=== PATIENT | male | born 1960 | race Caucasian/White ===

== ENCOUNTER 2019-01-08 12:04 | Emergency (ER) | payer OTHER, SELFPAY ==
[2019-01-08] VITALS (21 sets, daily range): BP systolic 120–144; BP diastolic 70–81; PULSE 87–106; RESP 18; TEMP 36.1; O2SAT 92–98
--- NOTE | 2019-01-08 12:20 | ED.GENADUL_ITS ---
Discharge Plan Disposition Patient Disposition: HOME Condition: Improving Discharge Details Chief Complaint: Sorethroat Clinical Impression: Pharyngitis Primary Care Provider: Unknown,Unknown ED Provider: Abdullahi Eagle Home Meds and New Rx's Prescriptions: New clindamycin HCl 300 mg capsule 300 mg PO Q6H 10 Days Qty: 40 RF: 0 Discharge Instructions Instructions: Pharyngitis (ED) Additional Instructions: Home to rest today. Small, frequent sips of fluids and/or popsicles as needed to soothe your discomfort. May use the provided Magic mouthwash swish and spit every 6 hours for comfort. Stop the amoxicillin and begin the prescribed clindamycin. I recommend that you take an [id number] probiotic while on this medication. Your white blood cell count was low today at 1.54. Please follow-up with the [facility] for recheck and to recheck blood work. Call for an appointment in the next 5 to 7 days time. Return to the emergency department for any acute concerns. Medical Decision Making 58-year-old male presents from home with his . He was diagnosed with strep at the [facility] 4 days ago and started on amoxicillin. Now with persistent sore throat, feels his lips are cracked and dry. He has a history of rheumatoid arthritis and Sjogren's syndrome. He is slightly tachycardic with a pulse of 106. But afebrile with blood pressure 144/73. Differential diagnosis includes his known streptococcal pharyngitis, would exclude mono, must exclude tonsillar abscess. Patient had IV access established, given fluids, dexamethasone, clindamycin IV. Labs reveal a white blood cell count of 1.5, absolute neutrophil count of 0.86. Remainder of CBC with hematocrit 43, platelets 110. Sodium 133, potassium 3.6, chloride 96, BUN 15, creatinine 1.0. Slightly elevated LFTs with a total bili 1.4, AST 72, ALT 98. Granite screen negative. CT images without evidence of abscess or asymmetric swelling. Patient is improving. We will have him follow-up with the [facility] for recheck and recheck of white blood cell count. I will switch him from amoxicillin to clindamycin. He understands homecare as well as return precautions to the ER. Lab Data Lab results reviewed: Yes I reviewed the patient's lab results. Labs: Laboratory Results - last 24 hr 01/08/19 01/08/19 01/08/19 13:01 13:01 13:01 WBC 1.54 L* RBC 5.09 Hgb 15.5 Hct 43.5 MCV 85.5 MCH 30.5 MCHC 35.6 RDW 12.5 Plt Count 110 L MPV 9.4 Immature Gran % 0.0 Neutrophils % 56.0 Lymphocytes % 33.0 Monocytes % 2.0 Eosinophils % 7.0 Basophils % 2.0 Absolute Neutrophils 0.86 L Absolute Lymphocytes 0.51 L Absolute Monocytes 0.03 L Absolute Eosinophils 0.11 Absolute Basophils 0.03 Differential Comment Manual differential Sodium 133 L Potassium 3.6 Chloride 96 L Carbon Dioxide 30.5 Anion Gap 6.5 BUN 15 Creatinine 1.07 Estimated GFR/1.73 m2 >= 60.00 Glucose 112 H Calcium 8.3 L Total Bilirubin 1.4 H AST 72 H ALT 98 H Alkaline Phosphatase 58 Total Protein 7.4 Albumin 4.1 Monoscreen Negative HPI General Mode of arrival: ambulatory . Date/Time Provider Initiated Documentation: 01/08/19 12:13 . Limitations to Documentation: no limitations . Information obtained by: patient and family . History of Present Illness 58 year old M presents to the emergency department with the chief complaint of Sore throat for 4 days, recent strep diagnosis, described as moderate, Quality is described as dull and constant, and is localized to the face and mouth. Patient started experiencing this day(s) and it has been constant. No relieving factors improve symptom(s), No exacerbating factors reported . Patient notes fever/chills and other (No drooling or change to voice. Mild left anterior nosebleed this morning. Taking amoxicillin. Lips feel swollen and cracked.). Patient did receive the following treatments prior to arrival, other (Amoxicillin) Related Data Home Medications Medication Instructions Recorded Confirmed clindamycin HCl 300 mg PO Q6H 10 Days #40 cap 01/08/19 Previous Rx's Medication Instructions Recorded clindamycin HCl 300 mg PO Q6H 10 Days #40 cap 01/08/19 Allergies Allergy/AdvReac Type Severity Reaction Status Date / Time cefaclor [From [facility]] Allergy Anaphylaxsi Unverified 01/08/19 12:13 s General Stated Complaint: Sorethroat SORAYA: 3 Review of Systems Narrative: No drooling or change to voice. Lips feel cracked and swollen. No difficulty breathing. Taking all medications. 6 systems reviewed and otherwise negative [facility] Medical History Hypertension (Chronic) Rheumatoid arteritis (Acute) Rheumatoid arthritis (Chronic) Sjogrens syndrome (Acute) Social History Smoking/Tobacco Use Status: Former Tobacco Use Alcohol Intake: current Alcohol Intake frequency: a few times a week Drug use: Never Substance use type: does not use Exam Narrative Exam Narrative: GEN: awake, alert, oriented 3. Pleasant, well groomed, interactive. HEAD: Normocephalic, atraumatic ENT: Mucous membranes dry, oropharynx erythematous tonsillar pillars with scant white exudate, no asymmetry or significant swelling, External ear exam unremarkable EYES: PERRL, EOMI NECK: Full ROM, submandibular AL, no menigismus CHEST/RESP: Nontender, clear to auscultation bilateral, no wheeze/rhonchi/rales CARDIOVASCULAR: Regular and tachycardic, no murmur, rub keshav. 2+ Rad pulse bilateral ABDOMEN: Soft, nontender, no mass. +Bowel sounds EXT: Full ROM, no edema, no rash Neuro: Grossly normal neurologic exam, conversant, interactive. Psych: Speech fluent, thoughts congruent, affect normal Course Vital Signs Vital signs: Vital Signs Temperature 36.1 C L 01/08/19 12:07 Pulse 106 H 01/08/19 12:07 Respiratory Rate 18 01/08/19 12:07 Blood Pressure 144/73 H 01/08/19 12:07 Pulse Oximetry 98 01/08/19 12:07 Temperature 36.1 C L 01/08/19 12:07 Temperature Source Skin 01/08/19 12:07 Pulse 106 H 01/08/19 12:07 Respiratory Rate 18 01/08/19 12:07 Respiratory Effort 01/08/19 12:12 Blood Pressure 144/73 H 01/08/19 12:07 Blood Pressure Position Sitting 01/08/19 12:07 Pulse Oximetry 98 01/08/19 12:07 Oxygen Delivery Method Room Air 01/08/19 12:07 Oxygen Flow Rate 0 01/08/19 12:07 Pain Level 10 01/08/19 12:07 Comment 01/08/19 12:07
[2019-01-08] MEDS: Dexamethasone 10 MG/ML VIAL IVP (12:54)
[2019-01-08] MEDS: CLINDAMYCIN 900 MG/50 ML BAG 50 MG IVPB (12:56)
[2019-01-08] MEDS: Normal Saline 1,000 ML 1000 ML IV (12:56)
[2019-01-08 13:27] LABS: HCT 43.5 % (40.0-50.0); HGB 15.5 g/dL (13.5-17.5); Mean Corp. HGB Concentration 35.6 g/dL (32.0-36.0); Mean Corpuscular Hemoglobin 30.5 pg (27.0-33.0); Mean Corpuscular Volume 85.5 fL (80-95); Mean Platelet Volume 9.4 fL (8.0-11.0); Platelet Count 110 x1000/uL (130-400); RBC 5.09 m/cumm (4.50-6.00); RBC Distribution Width 12.5 % (11.8-14.1)
[2019-01-08 13:34] LABS: Mono Screening Negative (Negative)
[2019-01-08 13:49] LABS: White Blood Cell Count 1.54 k/cumm (4.4-10.8)
[2019-01-08 13:50] LABS: Absolute Basophil Count 0.03 k/cumm (0.0-0.2); Absolute Eosinophil Count 0.11 k/cumm (0.0-0.7); Absolute Lymphocyte Count 0.51 k/cumm (1.2-3.4); Absolute Monocyte Count 0.03 k/cumm (0.11-0.7); Absolute Neutrophil Count 0.86 k/cumm (1.2-6.7); Diff Comment Manual Differential
[2019-01-08 13:51] LABS: ALT 98 U/L (16-63); AST 72 U/L (15-37); Albumin 4.1 g/dL (3.4-5.0); Alkaline Phosphatase 58 U/L (46-116); Anion Gap 6.5 mmol/L (3-11); BUN 15 mg/dL (7-18); Bilirubin, Total 1.4 mg/dL (0.2-1.0); CO2 30.5 mmol/L (21.0-32.0); CREATININE 1.07 mg/dL (0.70-1.30); Calcium 8.3 mg/dL (8.5-10.1); Chloride 96 mmol/L (98-107); Glucose 112 mg/dL (70-100); Potassium 3.6 mmol/L (3.5-5.1); Sodium 133 mmol/L (136-145); Total Protein 7.4 g/dL (6.4-8.2)
[2019-01-08] MEDS: Omnipaque 350 MG/ML 100 ML BTL IJ (14:29)
--- NOTE | 2019-01-08 14:37 | DI.CT_ITS ---
EXAM: CT NECK W CLINICAL HISTORY: Sore throat, swelling TECHNIQUE: 100 mL of Omnipaque 350 COMPARISON: No exams were available for comparison FINDINGS: The orbits and retro-orbital soft tissues are unremarkable. The nasopharynx, oropharynx, hypopharynx and larynx are unremarkable. The retropharyngeal space is unremarkable. There is a 4 millimeter hypodense nodule in the right lobe of the thyroid gland. This may be evaluat ed with a nonemergent thyroid ultrasound if clinically indicated. No significant cervical adenopathy is appreciated. Incidentally noted are calcifications in the parotid glands bilaterally. The submandibular glands are unremarkable. The lung apices are clear. Small mucous retention cysts or polyps are seen in the maxillary sinuses. No fluid levels are seen i n the visualized paranasal sinuses. Mild degenerative changes are seen in the spine. IMPRESSION: No acute abnormality. No evidence of an abscess. The findings were discussed with the Emergency Department on the date of the examination.
[2019-01-08] MEDS: Ketorolac 30 MG/ML VIAL IVP (15:03)
[2019-01-08] MEDS: Magic Mouthwash 119 ML BTL 100 ML PO (15:28)
== END 2019-01-08 15:38 | disposition home or self-care (01) ==
PROVIDERS: Emergency Provider Emergency Medicine
DX: J02.0 Streptococcal pharyngitis (principal); Z87.891 Personal history of nicotine dependence
CPT/HCPCS: 36415; 70491; 80053; 87880; 96361; 96365; 96375; 99284; 85025; 86308; J1100; J1885; J3490

== ENCOUNTER 2019-01-12 15:30 | Emergency (ER) | payer OTHER, SELFPAY ==
[2019-01-12] VITALS (28 sets, daily range): BP systolic 109–156; BP diastolic 62–103; PULSE 100–121; RESP 16–29; TEMP 36.1–38.6; O2SAT 84–100
--- NOTE | 2019-01-12 16:11 | ED.GENADUL_ITS ---
Discharge Plan Discharge Details Chief Complaint: GenMedical Primary Care Provider: Unknown,Unknown ED Provider: Essence Vazquez [employer] Meds and New Rx's Prescriptions: No Action clindamycin HCl 300 mg capsule 300 mg PO Q6H 10 Days Qty: 40 RF: 0 cyclobenzaprine 10 mg Tablet 10 mg PO PRN PRNRF: 0 meloxicam 15 mg Tablet 15 mg PO BID RF: 0 chlorthalidone 25 mg Tablet 25 mg PO DAILY RF: 0 sildenafil 100 mg Tablet 100 mg PO PRN PRNRF: 0 methotrexate sodium 2.5 mg Tablet 15 mg PO QWEEK RF: 0 tamsulosin 0.4 mg Capsule 0.4 mg PO DAILY RF: 0 trazodone 100 mg Tablet 200 mg PO PRN PRNRF: 0 benazepril 20 mg Tablet 20 mg PO DAILY RF: 0 folic acid 1 mg Tablet 1 mg PO DAILY RF: 0 hydroxychloroquine 200 mg Tablet 200 mg PO DAILY RF: 0 epinephrine [EpiPen] 0.3 mg/0.3 mL Auto-Injector 0.3 mg IM PRN PRNRF: 0 fluticasone propionate 50 mcg/actuation [place],Suspension 2 spray INTRANASAL DAILY RF: 0 finasteride 5 mg Tablet 5 mg PO DAILY RF: 0 prazosin 2 mg Capsule 2 mg PO DAILY RF: 0 naproxen 500 mg Tablet 500 mg PO PRN PRNRF: 0 duloxetine 20 mg Capsule,Delayed Release(Dr/Ec) 20 mg PO DAILY RF: 0 diclofenac sodium 1 % Gel 1 % TOPICAL PRN PRNRF: 0 omeprazole 20 mg Tablet,Delayed Release (Dr/Ec) 20 mg PO DAILY RF: 0 Medical Decision Making Patient is a 58-year-old male presenting today with chief complaint of weakness, general malaise, decreased appetite, jaundice, bleeding from the nose and mouth. Please see HPI this history is quite complicated. History is most concerning for methotrexate toxicity. Patient does not take any methotrexate or any other medications since Friday morning. Patient appears acutely ill. He is jaundiced, has dried blood in his nares, petechial rash in the soft palate, plaque on his tongue, bleeding on the corners of his lips, jaundiced skin, conjunctival pallor, systolic murmur, frequent PVCs, diffuse abdominal tenderness with no peritoneal findings. Patient appears fatigued, diaphoretic. Lungs are clear. Patient is denying any chest pain. Contacted poison control who is attempting to return to a data security consultant to discuss the case with. In the interim, labs are pending and will aggressively hydrate the patient. Lactate 4.0 White cell count is 0.36, this is down from 1.54 on 01/08/2019 and down from 5.6 on the first of this month. Platelet count is 38, this is down from 110. Absolute neutrophil count is 30 commenced down from 0.86. Potassium 3.3. Creatinine is up to 60 from 1.07. Glucose is elevated which is atypical for the patient. Total bilirubin is up to 6.2, this is up from 1.4. AST is 12, this is down from 72. ALT is 59 down from 98. Patient last had his AST and ALT checked by primary care 12/25/2018, they are within normal limits. Spoke with jacob Cruz, just with poison control. She advised that this is a type of toxicity will often result in a delayed presentation and could potentially be fatal. She did advise beginning the patient on leucovorin and continuing with this until the blood cells are able to recover. Based on the patient's ideal body weight and body surface area, she recommended starting the patient 100 mg per metered square tonight with reduction in this to 100 every 6 hours. A methotrexate level has been sent to [facility] urgently. She did recommend treating until the level is below measurable level. She advised that we are likely to seem to be getting of this issue and then it may continue for the next 1 to 2 weeks. She advised slow administration of the leucovorin, monitoring the patient closely for hypocalcemia. Also advised that this is common to have reactions and to use antihistamines as needed for symptomatic management. She advised that this should drop should be delivered tonight but did not have to be immediately given as we do not have the appropriate dosing. Advise blood products if needed. Also advised monitoring postvoid residuals the patient does have a history of BPH. She is concerned that inserting a catheter at this time could cause further bleeding and advised that we may begin the alpha-dyllan if needed. Advised that patient does not begin making urine, or does not respond to the leucovorin, he needs to be begun on glucarpidafe. Feel the patient is too acutely ill to be kept here, we do not have ICU level care available and do not have enough of the appropriate medication. Thus far, patient received 1 L of normal saline, 1 L of lactated Ringer and is currently on a rate of LR. Contacted [facility] who will have hospitalist call back. Contacted [facility], Dr. Rebolledo, who feels that this patient should be at a critical access hospital and recommended speaking with [facility] or [facility]. Constuled with hemo/onc with [facility] Dr. Zavala who advised that they would consult with hospital medicine. Spoke with hospital medicine who advised he would accept the patient to the [facility] for continued treatment of his methotrexate toxicity. Obtain chest x-ray, blood cultures, begin patient on antibiotics. Team and actually recommended Zosyn the patient is anaphylaxis reaction to cefaclor. Will begin on levofloxacin. Patient is febrile with a temp of 1 1.5 ?F. Advised him at this time of the patient's underlying pathology to give either acetaminophen or NSAID. Will continue to encourage cold water intake, calling the patient externally. CXR: FINDINGS: Lungs: Incomplete inspiratory effort. A few abnormal reticular density at the lung bases. No focal consolidation Pleural space: Unremarkable. No pleural effusion. No pneumothorax. Heart/Mediastinum: Unremarkable. No cardiomegaly. Upper abdomen: Moderate amount of gas in the visualized upper abdomen a nonspecific pattern. Bones/joints: Unremarkable. IMPRESSION: Minimal atelectasis of the lung bases associated with incomplete inspiratory effort. Patient transported to [facility] via EMS. Receiving antibiotics. Cooling externally. 2L of fluids, receiving 3rd. All of his and his wifes questions were addressed, they are in agreement with this plan. HPI General Mode of arrival: wheelchair . Date/Time Provider Initiated Documentation: 01/12/19 15:40 . Limitations to Documentation: no limitations . Information obtained by: patient, family () and RN notes reviewed . HPI Narrative: Patient is a 58-year-old male with history of hypertension, rheumatoi d arthritis, Sjogren's syndrome, BPH, presenting today with concerns of general unwell. 2 weeks ago, the patient was started on methotrexate for his rheumatoid arthritis. Dosing for the patient was 3 tabs of 2.5 mg methotrexate once the morning, once at night, one day a week. However, the patient had been taking 3 tabs of 2.5 mg methotrexate twice daily for the past 2 weeks. This error was picked up by his on Friday after he took his morning dose. He has not taken any methotrexate, or his other medications, since that time. 1 week ago, the patient had a sore throat. He was seen by his primary care provider who began treatment for Streptococcus pharyngitis with a negative rapid strep. He was treated with amoxicillin. Patient subsequently came to the emergency department here on , 01/08/2019. At that time, there was concern for possible abscess and CT imaging and labs were completed. Patient was noted to have a low white count at that time as well as elevated LFTs. However, patient had denied being on any medications at that time aside from the amoxicillin. Had not relayed that he was on methotrexate and no dosing abnormalities were noted. After being discharged from here on , patient began to decline more rapidly. reports that Friday he was much more fatigued, has not been able to get out of bed easily. Patient reports that he is now not able to walk more than 10 steps without getting winded and very fatigued. He endorses mild abdominal pain states this began a few days ago. Is also been having bloody noses and has had bleeding at the corners of his mouth. Has had poor p.o. intake. Denies any hematochezia, melena, hematuria, hemoptysis. Has endorsed cough. noted a change in his skin tone and the patient appearing more jaundiced over the past 24 hours. The patient was not able to picket [employer] small things at home secondary to his weakness insisted he be brought to the emergency department. [facility] and [facility] did send down information on the patient. Related Data Home Medications Medication Instructions Recorded Confirmed clindamycin HCl 300 mg PO Q6H 10 Days #40 cap 01/08/19 01/12/19 benazepril 20 mg PO DAILY 01/12/19 01/12/19 chlorthalidone 25 mg PO DAILY 01/12/19 01/12/19 cyclobenzaprine 10 mg PO PRN PRN 01/12/19 01/12/19 diclofenac sodium 1 % TOPICAL PRN PRN 01/12/19 01/12/19 duloxetine 20 mg PO DAILY 01/12/19 01/12/19 epinephrine [EpiPen] 0.3 mg IM PRN PRN 01/12/19 01/12/19 finasteride 5 mg PO DAILY 01/12/19 01/12/19 fluticasone propionate 2 spray INTRANASAL DAILY 01/12/19 01/12/19 folic acid 1 mg PO DAILY 01/12/19 01/12/19 hydroxychloroquine 200 mg PO DAILY 01/12/19 01/12/19 meloxicam 15 mg PO BID 01/12/19 01/12/19 methotrexate sodium 15 mg PO QWEEK 01/12/19 01/12/19 naproxen 500 mg PO PRN PRN 01/12/19 01/12/19 omeprazole 20 mg PO DAILY 01/12/19 01/12/19 prazosin 2 mg PO DAILY 01/12/19 01/12/19 sildenafil 100 mg PO PRN PRN 01/12/19 01/12/19 tamsulosin 0.4 mg PO DAILY 01/12/19 01/12/19 trazodone 200 mg PO PRN PRN 01/12/19 01/12/19 Previous Rx's Medication Instructions Recorded clindamycin HCl 300 mg PO Q6H 10 Days #40 cap 01/08/19 Allergies Allergy/AdvReac Type Severity Reaction Status Date / Time cefaclor [From [facility]] Allergy Anaphylaxsi Unverified 01/12/19 15:38 s General Stated Complaint: GenMedical SORAYA: 3 Review of Systems Constitutional Constitutional: Reports as per HPI, Denies chills, Reports fatigue, Denies fever(s), Denies headache(s), Reports lethargy, Reports malaise and Reports poor appetite Eyes Eyes: Reports as per HPI, Denies eye discharge and Denies irritation ENT Ears, Nose, Mouth, and Throat: Reports as per HPI and Denies headache(s) Cardiovascular Cardiovascular: Reports as per HPI, Denies chest pain, Denies chest pain at rest, Denies pedal edema, Denies lightheadedness, Denies palpitations, Reports dyspnea, Reports dyspnea on exertion and Denies orthopnea Respiratory Respiratory: Reports as per HPI, Reports dyspnea and Reports dyspnea on exertion Gastrointestinal Gastrointestinal: Reports as per HPI, Reports abdominal pain (Endorses generalized discomfort), Denies cramping, Denies excessive flatus, Reports diarrhea (Reports several bowel movements today, denies any melena or hematochezia), Denies nausea, Denies vomiting and Denies hematemesis Genitourinary Genitourinary: Reports as per HPI (Reports diminished urination today), Denies hematuria, Denies difficulty urinating, Denies urinary incontinence and Denies urinary urgency Integumentary/Breasts Skin/Breast: Reports as per HPI, Reports bleeding lesions, Denies unusual bruising, Denies wounds and Reports other (jaundice) Neurologic Neurologic: Reports as per HPI and Denies headache(s) Endocrine Endocrine: Reports fatigue and Denies palpitations [facility] Social History Smoking/Tobacco Use Status: Former Tobacco Use Alcohol Intake: current Alcohol Intake frequency: a few times a week Drug use: Never Substance use type: does not use Do you feel safe at home: Yes Do you feel safe in your relationship?: Yes Exam Const General: cooperative, comfortable, no acute distress, well developed, disheveled, ill appearing (jaundice) acutely, lethargic and No well hydrated (appears dehydrated) Nutritional Appearance: well nourished and overweight Orientation: alert, awake and oriented x3 HENMT Head: normal to inspection, normocephalic and atraumatic Ears: hearing grossly normal bilaterally, external ears abnormal (crusting in left ear, typically wears hearing aid) and TM's normal bilaterally General nose exam: nares abnormal (dried blood discharge bilateral nares) and no nasal polyps Face and sinus: normal facial exam (jaundice), sinuses nontender and face symmetric Mouth: abnormal oral mucosae (soft palate petechia, petechia under tongue), lip abnormal (crusted blood in corners of mouth), abnormal tongue (thick white plaque), mucous membranes dry (appears dehydrated), malodorous breath fetid, no muffled voice and restricted motion (able to open with prompting but severe pain at corners of mouth) Teeth and gingiva: dentition normal Throat: uvula midline Eyes General: appearance normal, both eyes and all related structures Neck Neck: normal visual inspection, full ROM, no lymphadenopathy and no meningeal signs Resp Effort & Inspection: normal respiratory effort, able to speak in complete sentences and no respiratory distress Auscultation: clear to auscultation bilaterally, no rales, no rhonchi and no wheezes Cardio Rate: regular rate Rhythm: regular rhythm Heart Sounds: S1 normal, S2 normal and murmur systolic GI Inspection: normal to inspection, no edema, non-distended, scar (RLQ scar, appears well healed), no visible herniation and no visible pulsation Palpation: soft, no hepatosplenomegaly, not firm, no guarding, not rigid and tender (diffuse discomfort but no peritoneal findings) with no rebound tenderness Percussion: normal to percussion Auscultation: normal bowel sounds Skin General skin exam: no rashes or lesions noted Neuro General: alert and awake Cognition: normal cognition Speech: speech normal Gait: normal gait Extrem General: normal to inspection, no pedal edema and no calf tenderness Psych Appearance: grossly normal and well kempt Mental Status: mental status grossly normal Speech and Movement: speech and movement normal Course Vital Signs Vital signs: Vital Signs Temperature 36.1 C L 01/12/19 15:34 Pulse 112 H 01/12/19 15:34 Respiratory Rate 18 01/12/19 15:34 Blood Pressure 109/103 H 01/12/19 15:34 Pulse Oximetry 100 01/12/19 15:34 Temperature 36.1 C L 01/12/19 15:34 Temperature Source Temporal Artery Scan 01/12/19 15:34 Pulse 112 H 01/12/19 15:34 Respiratory Rate 18 01/12/19 15:34 Respiratory Effort Non-Labored 01/12/19 15:34 Blood Pressure 109/103 H 01/12/19 15:34 Blood Pressure Position Sitting 01/12/19 15:34 Pulse Oximetry 100 01/12/19 15:34 Oxygen Delivery Method Room Air 01/12/19 15:34 Oxygen Flow Rate 0 01/12/19 15:34
[2019-01-12] MEDS: Normal Saline 1,000 ML 1000 ML IV (16:23)
[2019-01-12] MEDS: Normal Saline Flush 10 ML SYR IVP (16:25)
[2019-01-12 16:37] LABS: Absolute Eosinophil Count 0.04 k/cumm (0.0-0.7); HCT 40.8 % (40.0-50.0); Mean Corp. HGB Concentration 36.8 g/dL (32.0-36.0); Mean Corpuscular Hemoglobin 30.2 pg (27.0-33.0); Mean Corpuscular Volume 82.3 fL (80-95); Mean Platelet Volume 10.5 fL (8.0-11.0); RBC 4.96 m/cumm (4.50-6.00); RBC Distribution Width 12.2 % (11.8-14.1)
[2019-01-12 16:45] LABS: INR 1.1 (0.9-1.1); PTT Activated 23.9 sec (21.0-31.4); Prothrombin Time 10.8 sec (9.3-11.0)
[2019-01-12 16:48] LABS: ALT 59 U/L (16-63); AST 12 U/L (15-37); Albumin 2.6 g/dL (3.4-5.0); Alkaline Phosphatase 59 U/L (46-116); Anion Gap 9.6 mmol/L (3-11); BUN 38 mg/dL (7-18); Bilirubin, Total 6.2 mg/dL (0.2-1.0); CO2 29.4 mmol/L (21.0-32.0); CREATININE 1.67 mg/dL (0.70-1.30); Calcium 8.3 mg/dL (8.5-10.1); Chloride 95 mmol/L (98-107); ETHANOL BLOOD < 3.0 mg/dL (<3); Estimated GFR 42.77 (mL/min/1.73m2); Glucose 203 mg/dL (74-106); Lipase 32 U/L (73-393); Magnesium 2.1 mg/dL (1.8-2.4); Potassium 3.3 mmol/L (3.5-5.1); Sodium 134 mmol/L (136-145); Total Protein 6.9 g/dL (6.4-8.2)
--- NOTE | 2019-01-12 17:00 | NUR.NOTE ---
Nursing Note: methrotrexate lab being transferred to another facility for results as we do not do this test here. run as stat read and will be awaiting results.
[2019-01-12 17:06] LABS: Troponin I < 0.05 ng/Ml (<0.06)
[2019-01-12] MEDS: Lactated Ringers 1,000 ML 1000 ML IV (17:26)
[2019-01-12 17:27] LABS: White Blood Cell Count 0.36 k/cumm (4.4-10.8)
[2019-01-12 17:28] LABS: Platelet Count 38 x1000/uL (130-400)
[2019-01-12 17:29] LABS: Absolute Neutrophil Count 0.03 k/cumm (1.2-6.7)
[2019-01-12 17:31] LABS: Absolute Lymphocyte Count 0.28 k/cumm (1.2-3.4); Absolute Monocyte Count 0.01 k/cumm (0.11-0.7); Atypical Lymphocytes % 0; Nucleated RBC 1 /100WBC
[2019-01-12 17:32] LABS: Anisocytosis 1+; Diff Comment Manual Differential; Tear Drop Cells 2+
[2019-01-12 18:59] LABS: Bilirubin Large (Negative); Blood Trace-intact (Negative); Clarity Clear (Clear); Glucose Negative (Negative); Ketones Negative (Negative); Leukocyte Esterase Negative (Negative); Nitrite Negative (Negative); Urobilinogen 0.2 EU/dL (Up TO 0.2)
[2019-01-12 19:10] LABS: Bacteria Moderate HPF (Negative); C & S Indicated? Yes; Casts Negative LPF (Negative); Crystals Negative HPF (Negative); Epithelial Cells Negative HPF (Negative); Mucus Trace (Negative); Other Cells Negative (Negative); RBC 0-2 HPF (0-2)
--- NOTE | 2019-01-12 19:42 | DI.RAD_ITS ---
EXAM: XR CHEST 2V PA LATERAL INDICATION: neutropenic fever. COMPARISON: No exams were available for comparison TECHNIQUE: 2D digital imaging was performed. FINDINGS: The lungs are expiratory on both views. There is minimal linear atelectasis at the lung bases. No s uperimposed infiltrate, effusion or pulmonary edema seen heart size appears normal. No pneumothorax or thoracic compression fractures are seen. IMPRESSION: No acute abnormality. Limited exam.
--- NOTE | 2019-01-12 20:18 | NUR.NOTE ---
Nursing Note: Pt's clothing removed, cool cloths applied and cool packs initiated per provider.
--- NOTE | 2019-01-12 20:20 | DI.VRAD_ITS ---
PROCEDURE INFORMATION: Exam: XR Chest, 2 Views Exam date and time: 01/12/2019 8:06 PM Age: 58 years old Clinical history: Fever and other: Neutropenic fever TECHNIQUE: Imaging protocol: XR of the chest Views: 2 views. COMPARISON: No relevant prior studies available. FINDINGS: Lungs: Incomplete inspiratory effort. A few abnormal reticular density at the lung bases. No focal consolidation Pleural space: Unremarkable. No pleural effusion. No pneumothorax. Heart/Mediastinum: Unremarkable. No cardiomegaly. Upper abdomen: Moderate amount of gas in the visualized upper abdomen a nonspecific pattern. Bones/joints: Unremarkable. IMPRESSION: Minimal atelectasis of the lung bases associated with incomplete inspiratory effort. Dictated and Authenticated by: Abdirizak Ventura MD. Ordering:DANGELO Lowry MD
--- NOTE | 2019-01-12 20:25 | NUR.NOTE ---
Nursing Note: Upon further skin evaluation, pt has petechiae on dependent portion of scrotum. Thighs are clear. Inguinal hernia appreciated as well. Provider aware.
[2019-01-12] MEDS: levoFLOXacin 500 MG/100 ML BAG 100 MG IVPB (20:29)
[2019-01-12] MEDS: Lactated Ringers 1,000 ML 250 ML IV (20:29)
[2019-01-13 08:25] LABS: Methotrexate <0.05 umol/L (See Note)
--- NOTE | 2019-01-14 09:47 | NUR.NOTE ---
Nursing Note: Faxed to the unit at [facility] that the patient is currently on, the urine culture result. Ariela Rogers.
== END 2019-01-12 21:00 ==
PROVIDERS: Emergency Provider Physician Assistant
DX: T45.1X1A Poisoning by antineoplastic and immunosuppressive drugs, accidental (unintentional), initial encounter (principal); R53.1 Weakness; R04.0 Epistaxis; R17 Unspecified jaundice; I10 Essential (primary) hypertension
CPT/HCPCS: 36415; 80053; 83690; 87040; 96361; 96365; 99285; 71046; 80320; 81003; 81015; 83520; 83605; 83735; 84484; 85025; 85045; 85610; 85730; 87086; 99284; J1956

== ENCOUNTER 2019-01-31 05:04 | Emergency (ER) | payer OTHER, SELFPAY ==
--- NOTE | 2019-01-31 05:07 | ED.GENADUL_ITS ---
Discharge Plan Disposition Patient Disposition: HOME Condition: Good Discharge Details Chief Complaint: Abd Prob Clinical Impression: Abdominal pain, epigastric, Transaminitis Primary Care Provider: Unknown,Unknown ED Provider: Kirk Kilpatrick Home Meds and New Rx's Prescriptions: New pantoprazole [Protonix] 40 mg tablet,delayed release (DR/EC) 40 mg PO DAILY Qty: 30 RF: 0 ranitidine HCl 300 mg capsule 300 mg PO BID Qty: 60 RF: 0 sucralfate [Carafate] 100 mg/mL suspension 10 ml PO QACHS Qty: 420 RF: 0 No Action cyclobenzaprine 10 mg Tablet 10 mg PO PRN PRNRF: 0 meloxicam 15 mg Tablet 15 mg PO BID RF: 0 chlorthalidone 25 mg Tablet 25 mg PO DAILY RF: 0 sildenafil 100 mg Tablet 100 mg PO PRN PRNRF: 0 methotrexate sodium 2.5 mg Tablet 15 mg PO QWEEK RF: 0 tamsulosin 0.4 mg Capsule 0.4 mg PO DAILY RF: 0 trazodone 100 mg Tablet 200 mg PO PRN PRNRF: 0 benazepril 20 mg Tablet 20 mg PO DAILY RF: 0 folic acid 1 mg Tablet 1 mg PO DAILY RF: 0 hydroxychloroquine 200 mg Tablet 200 mg PO DAILY RF: 0 epinephrine [EpiPen] 0.3 mg/0.3 mL Auto-Injector 0.3 mg IM PRN PRNRF: 0 fluticasone propionate 50 mcg/actuation [place],Suspension 2 spray INTRANASAL DAILY RF: 0 finasteride 5 mg Tablet 5 mg PO DAILY RF: 0 prazosin 2 mg Capsule 2 mg PO DAILY RF: 0 naproxen 500 mg Tablet 500 mg PO PRN PRNRF: 0 duloxetine 20 mg Capsule,Delayed Release(Dr/Ec) 20 mg PO DAILY RF: 0 diclofenac sodium 1 % Gel 1 % TOPICAL PRN PRNRF: 0 omeprazole 20 mg Tablet,Delayed Release (Dr/Ec) 20 mg PO DAILY RF: 0 Discharge Instructions Instructions: Epigastric Pain (ED) Additional Instructions: At this time your CT scan shows no evidence of significant abnormality per our radiologist. I suspect your symptoms are likely from a mild stomach ulcer. H owever because of your significant admission at [facility] there are many things that could cause problems that resulted in symptoms like years. Thus if you notice any worsening of your symptoms or lack of improvement over the next 24 to 48 hours please return immediately for reassessment. Please avoid any spicy foods or tomato-based products. Please take the medication that is been prescribed to prevent any future stomach ulcers. Your liver function is elevated compared to [facility]. This may be a result of your previous medical problem at [facility], or another etiology. Please follow-up promptly at the [facility] in the next 24 to 48 hours have repeat blood draws and reassessment. If you notice any worsening of your symptoms, or any new symptoms such as vomiting, diarrhea, fever, chills, shortness of breath, chest pain, numbness, weakness, or fainting , please return immediately to the emergency department for reevaluation. Please follow up with your primary care provider as soon as possible for reassessment and reevaluation. As always, it was a pleasure participating in your medical care today. Medical Decision Making This is a 58-year-old male with past medical history of rheumatoid arthritis, Sjogren's syndrome, who was recently discharged from [facility] after a prolonged stay for methotrexate overdose which had caused pancytopenia, neutropenic fever, small bowel obstruction during his stay secondary to gastritis/gastroenteritis. He presents today for for abdominal burning pain. Generalized abdominal distention generalized abdominal tenderness. Symptoms began last night. Last bowel movement was yesterday. He has had nausea but no vomiting. He denies any flatus. Physical exam demonstrates mildly distended abdomen, reduced bowel sounds. Signs and symptoms are currently concerning for small bowel obstruction. We will gently rehydrate, treat the patient's pain, get a CT scan to evaluate for obstruction and reassess. Additionally for summary of his stay in [facility] please refer to HPI. 6:[address] scan results are negative for acute process including ileus or obstruction. No abnormalities for his intestines: No hernias per virtual radiology. Patient states that he has had no improvement of his symptoms after morphine. Will trial GI cocktail. His CBC has returned and is notably unremarkable, normal whi te count, hemoglobin is 10.6 however in light of his anemia that he had, and his hemoglobin was 11 at discharge from [facility] a week ago. Platelets are durable. No significant left shift. 6:30 AM Patient's electrolytes have returned, renal function normal, corrected calcium in reference to albumin is normal. His potassium is slightly low at 3.3, sodium slightly low at 130, patient does demonstrate mild transaminitis, this is slightly worse compared to when he was at [facility]. We will correct his electrolytes, and add a GI cocktail and Bentyl for control pain. 7:30 AM The patient is feeling much better after GI cocktail. The burning is completely resolved and he feels well and would like to go home. I feel that his symptoms are likely secondary to a gastric ulcer. The absence of any pancreatitis, surgical abnormality on the CT scan, or other significant pathology I feel he can be safely discharged home. Because of his increase in transaminases I do feel that he requires close follow-up and prompt reassessment. Patient would like to follow-up at his [facility] in [place]. We have asked her case management to help facilitate this close and prompt follow-up. He does have an appointment this coming in 5 days, however we will have our case picker request labs prior to that he can be reassessed. I recommend specifically a conference of metabolic panel. At this time with the patient's notable symptom improvement, I feel that his symptoms are clinically consistent with gastric ulcers, and inconsistent with an acute surgical abdomen, or other acute life-threatening etiology. Discussed red flags which to return. I have extensively reviewed the treatment plan and discharge instructions with the patient. I have addressed all patient concerns at this time. The patient was made aware of what symptoms to monitor for that would warrant a return to the emergency department. Discussed the plan with the patient, they demonstrate verbal understanding and agreement with our assessment and plan at this time. FINDINGS: Lungs: Basilar atelectasis. Liver: Hepatic steatosis. Gallbladder and bile ducts: Normal. No calcified stones. No ductal dilation. Pancreas: Normal. No ductal dilation. Spleen: Normal. No splenomegaly. Adrenals: Normal. No mass. Kidneys and ureters: Normal. No hydronephrosis. Stomach and bowel: Colonic diverticula. Appendix: No evidence of appendicitis. Intraperitoneal space: Unremarkable. No free air. No significant fluid collection. Vasculature: Unremarkable. No abdominal aortic aneurysm. Lymph nodes: Unremarkable. No enlarged lymph nodes. Bladder: Unremarkable as visualized. Reproductive: Unremarkable as visualized. Bones/joints: Unremarkable. No acute fracture. Soft tissues: Unremarkable. IMPRESSION: No acute finding. Thank you for allowing us to participate in the care of your patient. Dictated and Authenticated by: Abdirizak Dickinson MD 01/31/2019 5:52 AM Eastern Time ([place] & [place]) HPI General Date/Time Provider Initiated Documentation: 01/31/19 05:06 . HPI Narrative: Patient is a 58-year-old male with history of hypertension, rheumatoid arthritis, Sjogren's syndrome, BPH, who was recently discharged from [facility] 1 week ago. He presents today for abdominal distention and pain in his abdomen. Pain is generalized throughout. He describes it as a burning sensation. He has had nausea with no vomiting. Symptoms began this evening. He denies any hematochezia, melena, acholic stool or hematemesis. Does admit to occasional loose stool. He has not eaten anything in the last 12 hours. He denies any current flatus. Past surgical history is positive for appendectomy. At his stay in [facility] he did develop a small bowel obstruction which resolved with a week of NG suction. He does have a known hiatal hernia and bilateral inguinal hernias. He denies any chest pain, shortness of breath or chest tightness. He denies any genital pain. Patient denies any other complaints at this time. No other modifying factors. For historical context: Over 2 weeks ago the patient was initially seen here in the ED for methotrexate overdose. He had been taking triple of his regular dose, he was subsequently admitted to [facility] with pancytopenia, neutropenia, fever, significant thrombocytopenia, jaundice bleeding. He was started on leucovorin therapy. He had both liver and kidney injury. While at [facility] he developed a small bowel obstruction and subsequent metabolic alkalosis second reno to suctioning of gastric contents. He was discharged 7 days ago with a notable improvement of his labs, tolerating p.o. well. Related Data Home Medications Medication Instructions Recorded Confirmed benazepril 20 mg PO DAILY 01/12/19 01/12/19 chlorthalidone 25 mg PO DAILY 01/12/19 01/12/19 cyclobenzaprine 10 mg PO PRN PRN 01/12/19 01/12/19 diclofenac sodium 1 % TOPICAL PRN PRN 01/12/19 01/12/19 duloxetine 20 mg PO DAILY 01/12/19 01/12/19 epinephrine [EpiPen] 0.3 mg IM PRN PRN 01/12/19 01/12/19 finasteride 5 mg PO DAILY 01/12/19 01/12/19 fluticasone propionate 2 spray INTRANASAL DAILY 01/12/19 01/12/19 folic acid 1 mg PO DAILY 01/12/19 01/12/19 hydroxychloroquine 200 mg PO DAILY 01/12/19 01/12/19 meloxicam 15 mg PO BID 01/12/19 01/12/19 methotrexate sodium 15 mg PO QWEEK 01/12/19 01/12/19 naproxen 500 mg PO PRN PRN 01/12/19 01/12/19 omeprazole 20 mg PO DAILY 01/12/19 01/12/19 prazosin 2 mg PO DAILY 01/12/19 01/12/19 sildenafil 100 mg PO PRN PRN 01/12/19 01/12/19 tamsulosin 0.4 mg PO DAILY 01/12/19 01/12/19 trazodone 200 mg PO PRN PRN 01/12/19 01/12/19 pantoprazole [Protonix] 40 mg PO DAILY #30 tab 01/31/19 ranitidine HCl 300 mg PO BID #60 cap 01/31/19 sucralfate [Carafate] 10 ml PO QACHS #420 ml 01/31/19 Previous Rx's Medication Instructions Recorded pantoprazole [Protonix] 40 mg PO DAILY #30 tab 01/31/19 ranitidine HCl 300 mg PO BID #60 cap 01/31/19 sucralfate [Carafate] 10 ml PO QACHS #420 ml 01/31/19 Allergies Allergy/AdvReac Type Severity Reaction Status Date / Time bee venom protein (honey bee) Allergy Unverified 01/31/19 05:14 cefaclor [From Ceclor] Allergy Anaphylaxsi Unverified 01/12/19 15:38 s General SORAYA: 3 Review of Systems All systems reviewed & are unremarkable except as noted in HPI and below PFSH Social History Smoking/Tobacco Use Status: Former Tobacco Use Alcohol Intake: current Alcohol Intake frequency: a few times a week Drug use: Never Substance use type: does not use Do you feel safe at home: Yes Do you feel safe in your relationship?: Yes Exam Narrative Exam Narrative: 1.Const: Well-nourished, Well-developed, appearing stated age 2.Eyes: PERRL, no conjunctival injection, and symmetrical lids. 3.ENT: Atraumatic external nose and ears. Moist MM. Neck: Symmetric, trachea midline, No thyromegaly. 4.CVS: +S1/S2, No murmurs or gallops. Peripheral pulses 2+ and equal in all extremities. Brisk capillary refill in all extremities. 5.RESP: Unlabored respiratory effort. Clear to auscultation bilaterally. No wheezes rales or rhonchi 6.GI: Moderately distended abdomen, generalized tenderness throughout tender to the touch. Notably reduced bowel sounds. No guarding. No rebound. No significant inguinal tenderness. 7.MSK: Normocephalic/Atraumatic, Extremities w/o deformity or ttp No cyanosis or clubbing, Normal movement of all extremities 8.Skin: Warm, Dry. Slightly.jaundice, bruising throughout. 9.Neuro: laboratory tech II-XII grossly intact. Sensation grossly intact, no focal neurologic deficits. 10.Psych: (AAO) x3. Appropriate mood and affect
[2019-01-31 05:10] VITALS: BP 141/62; PULSE 84; RESP 20; TEMP 37.1; O2SAT 99
--- NOTE | 2019-01-31 05:28 | DI.CT_ITS ---
EXAM: CT ABDOMEN AND PELVIS WO CLINICAL HISTORY: abdominal distension and pain TECHNIQUE: Images were performed from the aortic arch through the ischial tuberosities without IV or oral contrast. COMPARISON: No exams were available for comparison FINDINGS: There is minimal atelectasis at the lung bases. Aorta is normal in diameter. Coronary artery calcific ations are seen. The heart size is normal. The liver, spleen, pancreas, adrenals, kidneys and gallbla dder are unremarkable without IV contrast. There is no bowel dilatation or inflammatory change. Ther e is no evidence of appendicitis. There are diverticula from the mid descending through sigmoid colon but no evidence of diverticulitis. There is a normal quantity of stool. The bladder and prostate are unremarkable. There are small fatty-containing bilateral inguinal hernias. IMPRESSION: Diverticulosis. No evidence diverticulitis. No acute abnormality is seen.
[2019-01-31] MEDS: Normal Saline 1,000 ML 1000 ML IV (05:50)
[2019-01-31] MEDS: Ondansetron 4 MG/2 ML VIAL IVP (05:52)
--- NOTE | 2019-01-31 05:52 | DI.VRAD_ITS ---
PROCEDURE INFORMATION: Exam: CT Abdomen And Pelvis Without Contrast Exam date and time: 01/31/2019 5:25 AM Age: 58 years old Clinical history: Bloating; Abdominal pain; Generalized; Patient HX: Abdominal distension and pain TECHNIQUE: Imaging protocol: Computed tomography of the abdomen and pelvis without contrast. COMPARISON: No relevant prior studies available. FINDINGS: Lungs: Basilar atelectasis. Liver: Hepatic steatosis. Gallbladder and bile ducts: Normal. No calcified stones. No ductal dilation. Pancreas: Normal. No ductal dilation. Spleen: Normal. No splenomegaly. Adrenals: Normal. No mass. Kidneys and ureters: Normal. No hydronephrosis. Stomach and bowel: Colonic diverticula. Appendix: No evidence of appendicitis. Intraperitoneal space: Unremarkable. No free air. No significant fluid collection. Vasculature: Unremarkable. No abdominal aortic aneurysm. Lymph nodes: Unremarkable. No enlarged lymph nodes. Bladder: Unremarkable as visualized. Reproductive: Unremarkable as visualized. Bones/joints: Unremarkable. No acute fracture. Soft tissues: Unremarkable. IMPRESSION: No acute finding. Dictated and Authenticated by: Abdirizak Dickinson MD. Ordering:SYLWIA Bradley MD
[2019-01-31 06:01] LABS: Abs Immature Grans 0.03 k/cumm (0.0-0.09); Absolute Basophil Count 0.04 k/cumm (0.0-0.2); Absolute Lymphocyte Count 0.78 k/cumm (1.2-3.4); Absolute Monocyte Count 0.39 k/cumm (0.11-0.7); Absolute Neutrophil Count 6.63 k/cumm (1.2-6.7); Basophils % 0.5; HCT 31.4 % (40.0-50.0); HGB 10.6 g/dL (13.5-17.5); Immature Grans % 0.4; Lymphocytes % 9.9; Mean Corp. HGB Concentration 33.8 g/dL (32.0-36.0); Mean Corpuscular Hemoglobin 30.3 pg (27.0-33.0); Mean Corpuscular Volume 89.7 fL (80-95); Mean Platelet Volume 8.5 fL (8.0-11.0); Neutrophils % 84.2; Platelet Count 359 x1000/uL (130-400); RBC Distribution Width 15.6 % (11.8-14.1); White Blood Cell Count 7.87 k/cumm (4.4-10.8)
[2019-01-31 06:14] LABS: ALT 150 U/L (16-63); AST 169 U/L (15-37); Albumin 2.7 g/dL (3.4-5.0); Alkaline Phosphatase 201 U/L (46-116); Anion Gap 5.7 mmol/L (3-11); BUN 9 mg/dL (7-18); Bilirubin, Total 1.5 mg/dL (0.2-1.0); CO2 27.3 mmol/L (21.0-32.0); CREATININE 0.98 mg/dL (0.70-1.30); Calcium 8.1 mg/dL (8.5-10.1); Chloride 97 mmol/L (98-107); Glucose 189 mg/dL (74-106); Lipase 300 U/L (73-393); Potassium 3.3 mmol/L (3.5-5.1); Sodium 130 mmol/L (136-145); Total Protein 6.9 g/dL (6.4-8.2)
[2019-01-31] MEDS: Dicyclomine 20 MG TAB PO (06:16)
[2019-01-31] MEDS: Mylanta Suspension 30 ML CUP (06:18)
[2019-01-31] MEDS: Lidocaine 2% Viscous 15 ML CUP (06:18)
[2019-01-31] MEDS: POTASSIUM CHLORIDE 10 MEQ/100 ML BAG 100 MEQ IVPB (06:31)
[2019-01-31] MEDS: Potassium Chloride 20 MEQ TABCR 40 MEQ PO (06:48)
[2019-01-31] MEDS: Sucralfate 1 GM TAB 2 GM PO (07:29)
[2019-01-31 08:04] VITALS: BP 141/62; PULSE 84; RESP 20; TEMP 37.1; O2SAT 99
--- NOTE | 2019-02-01 17:17 | CMPROGNOTE_ITS ---
- If Service Date Differs Date of service: 02/01/19 Time of Service: 17:17 Care Management Progress Note CM faxed referral and lab request and discharge and visit summary from the ED to Mely Rothman RN CCC at the [facility] for follow up [facility] [place].
== END 2019-01-31 08:02 | disposition home or self-care (01) ==
PROVIDERS: Emergency Provider Student in an Organized Health Care Education/Training Program
DX: R10.13 Epigastric pain (principal); R74.0 Nonspecific elevation of levels of transaminase and lactic acid dehydrogenase [LDH]; E87.6 Hypokalemia; R14.0 Abdominal distension (gaseous)
CPT/HCPCS: 36415; 80053; 83690; 96361; 96365; 96375; 99285; 74176; 85025; J2405; J3480

== ENCOUNTER 2019-08-28 16:27 | Emergency (ER) | payer MEDICAID, SELFPAY ==
[2019-08-28 16:34] VITALS: BP 162/90; PULSE 82; RESP 16; TEMP 36.8; O2SAT 97
--- NOTE | 2019-08-28 17:24 | W.ED.GENAD ---
Discharge Plan Disposition Patient Disposition: HOME Condition: Good Discharge Details Chief Complaint: RashLesion Clinical Impression: Allergic reaction caused by a drug Primary Care Provider: Leanne Macias ED Provider: Essence Vazquez [place] Meds and New Rx's Prescriptions: New prednisone 50 mg tablet 50 mg PO DAILY Qty: 4 RF: 0 Continued cyclobenzaprine 10 mg Tablet 10 mg PO PRN PRNRF: 0 meloxicam 15 mg Tablet 15 mg PO BID RF: 0 chlorthalidone 25 mg Tablet 25 mg PO DAILY RF: 0 sildenafil 100 mg Tablet 100 mg PO PRN PRNRF: 0 methotrexate sodium 2.5 mg Tablet 15 mg PO QWEEK RF: 0 tamsulosin 0.4 mg Capsule 0.4 mg PO DAILY RF: 0 trazodone 100 mg Tablet 200 mg PO PRN PRNRF: 0 benazepril 20 mg Tablet 20 mg PO DAILY RF: 0 folic acid 1 mg Tablet 1 mg PO DAILY RF: 0 hydroxychloroquine 200 mg Tablet 200 mg PO DAILY RF: 0 epinephrine [EpiPen] 0.3 mg/0.3 mL Auto-Injector 0.3 mg IM PRN PRNRF: 0 fluticasone propionate 50 mcg/actuation [place],Suspension 2 spray INTRANASAL DAILY RF: 0 finasteride 5 mg Tablet 5 mg PO DAILY RF: 0 prazosin 2 mg Capsule 2 mg PO DAILY RF: 0 naproxen 500 mg Tablet 500 mg PO PRN PRNRF: 0 duloxetine 20 mg Capsule,Delayed Release(Dr/Ec) 20 mg PO DAILY RF: 0 diclofenac sodium 1 % Gel 1 % TOPICAL PRN PRNRF: 0 omeprazole 20 mg Tablet,Delayed Release (Dr/Ec) 20 mg PO DAILY RF: 0 pantoprazole [Protonix] 40 mg tablet,delayed release (DR/EC) 40 mg PO DAILY Qty: 30 RF: 0 ranitidine HCl 300 mg capsule 300 mg PO BID Qty: 60 RF: 0 sucralfate [Carafate] 100 mg/mL suspension 10 ml PO QACHS Qty: 420 RF: 0 Discharge Instructions Instructions: General Allergic Reaction (ED) Additional Instructions: Encourage water intake. Please take the prednisone as prescribed. You are given your dosing here today and do not need any further until tomorrow. You may apply cool compresses to the area of reaction help with swelling. If you develop shortness of breath, difficulty breathing, wheezing, GI upset, spreading of the rash or the new/worsening symptoms seek care urgently once again. Otherwise, I would like for you to follow-up with rheumatology or primary care next week for reevaluation. Referrals: Leanne Macias [Primary Care Provider] - Discharge Data Discharge Date/Time-TO BE ENTERED AT DEPARTURE: 08/28/19 18:20 Medical Decision Making Patient is a 59-year-old male presenting today with chief concern for rash. Reports that he administered himself Enbrel subcu yesterday into his left thigh. States that this is the second dosing. The first was administered by the PR at which time he learned how to do so. He reports that a few hours after administering the medication yesterday he began having itching over the area of injection that progressively increased. Then began noting erythema, warmth and swelling. He denies any shortness of breath, chest pain, difficulty breathing. No GI upset. Has not had issues like this historically. On exam, patient has well circumscribed area of erythema to the left thigh. This area is warm and swollen. Nontender. No fluctuance. Does appear excoriated. His history and exam is most concerning for allergic reaction. As this is progressively been worsening, I do feel that treatment with steroids would be appropriate. Patient had been scheduled for steroid injection last week for his back and this was delayed. He states that he has tolerated steroids well historically. No history of diabetes. This may also the secondary benefit of helping with his chronic back pain for which he typically receives injections. I did encourage close follow-up with primary care, particularly since the subcu injection would likely persist past the point of the steroids given orally. I have encouraged him to follow-up the beginning of next week. He will call on Friday to schedule follow-up appointment. Patient was given strict return precautions. We also discussed signs symptoms of infection that should prompt him to seek care urgently once again. All of his questions and concerns were addressed and he is agreement with this plan. Patient was given first dosing of steroids here. [facility], if coupon was also found to help offset the cost of medications. HPI General Mode of arrival: ambulatory. Date/Time Provider Initiated Documentation: 08/28/19 17:24. Limitations to Documentation: no limitations. Information obtained by: patient and RN notes reviewed. History of Present Illness 59 year old M presents to the emergency department with the chief complaint of itching, erythema, warmth left lateral thigh, described as mild, Quality is described as other (itchy), and is localized to the left and lower extremity. Patient reports no radiation. Patient started experiencing this day(s) (1) and it has been constant (progressively worsening). No relieving factors improve symptom(s), Medication worsens symptoms (began a few hours after injection of enbrel yesterday) . Patient notes rash; denies chest pain, cough, diaphoresis, fever/chills, loss of appetite, nausea/vomiting, shortness of breath, syncope and weakness. Patient did receive the following treatments prior to arrival, none Related Data Home Medications Medication Instructions Recorded Confirmed benazepril 20 mg PO DAILY 01/12/19 01/12/19 chlorthalidone 25 mg PO DAILY 01/12/19 01/12/19 cyclobenzaprine 10 mg PO PRN PRN 01/12/19 01/12/19 diclofenac sodium 1 % TOPICAL PRN PRN 01/12/19 01/12/19 duloxetine 20 mg PO DAILY 01/12/19 01/12/19 epinephrine [EpiPen] 0.3 mg IM PRN PRN 01/12/19 01/12/19 finasteride 5 mg PO DAILY 01/12/19 01/12/19 fluticasone propionate 2 spray INTRANASAL DAILY 01/12/19 01/12/19 folic acid 1 mg PO DAILY 01/12/19 01/12/19 hydroxychloroquine 200 mg PO DAILY 01/12/19 01/12/19 meloxicam 15 mg PO BID 01/12/19 01/12/19 methotrexate sodium 15 mg PO QWEEK 01/12/19 01/12/19 naproxen 500 mg PO PRN PRN 01/12/19 01/12/19 omeprazole 20 mg PO DAILY 01/12/19 01/12/19 prazosin 2 mg PO DAILY 01/12/19 01/12/19 sildenafil 100 mg PO PRN PRN 01/12/19 01/12/19 tamsulosin 0.4 mg PO DAILY 01/12/19 01/12/19 trazodone 200 mg PO PRN PRN 01/12/19 01/12/19 pantoprazole [Protonix] 40 mg PO DAILY #30 tab 01/31/19 ranitidine HCl 300 mg PO BID #60 cap 01/31/19 sucralfate [Carafate] 10 ml PO QACHS #420 ml 01/31/19 prednisone 50 mg PO DAILY #4 tab 08/28/19 Previous Rx's Medication Instructions Recorded pantoprazole [Protonix] 40 mg PO DAILY #30 tab 01/31/19 ranitidine HCl 300 mg PO BID #60 cap 01/31/19 sucralfate [Carafate] 10 ml PO QACHS #420 ml 01/31/19 prednisone 50 mg PO DAILY #4 tab 08/28/19 Allergies Allergy/AdvReac Type Severity Reaction Status Date / Time bee venom protein (honey bee) Allergy Unverified 08/28/19 16:39 cefaclor [From Ceclor] Allergy Anaphylaxsi Unverified 08/28/19 16:39 s General Stated Complaint: RashLesion SORAYA: 3 Review of Systems Constitutional Constitutional: Reports as per HPI, Denies chills and Denies fever(s) Cardiovascular Cardiovascular: Denies chest pain, Denies chest pain at rest, Denies chest pain with activity and Denies dyspnea Respiratory Respiratory: Denies chest congestion, Denies cough, Denies hemoptysis, Denies pain with cough, Denies dyspnea, Denies stridor and Denies wheezing Gastrointestinal Gastrointestinal: Denies abdominal pain and Denies change in stool character Musculoskeletal Musculoskeletal: Reports as per HPI Integumentary/Breasts Skin/Breast: Reports rash Neurologic Neurologic: Reports as per HPI, Denies sensory deficit and Denies paresthesias Allergic/Immunologic Allergic/Immunologic: Denies wheezing [facility] Social History Smoking/Tobacco Use Status: Former Tobacco Use Alcohol Intake: current Alcohol Intake frequency: a few times a week Drug use: Never Substance use type: does not use Do you feel safe at home: Yes Do you feel safe in your relationship?: Yes Exam Const General: cooperative, healthy appearing, comfortable, no acute distress and well developed Nutritional Appearance: average body habitus and well nourished Orientation: alert and awake Resp Effort & Inspection: normal respiratory effort, able to speak in complete sentences and no respiratory distress Auscultation: clear to auscultation bilaterally and no wheezes Cardio Rate: regular rate Rhythm: regular rhythm Heart Sounds: S1 normal and S2 normal Skin Rashes: rashes noted (as drawn below) Neuro General: patient alert and patient awake Cognition: normal cognition Speech: speech normal Gait: normal gait Sensory Exam: no sensory deficits noted Extrem Knee images: 1. area of erythema, warmth, swelling. No fluctuance. No pain with palpation Psych Appearance: grossly normal and well kempt Mental Status: mental status grossly normal Speech and Movement: speech and movement normal Course Vital Signs Vital signs: Vital Signs Temperature 36.8 C 08/28/19 16:34 Pulse 82 08/28/19 16:34 Respiratory Rate 16 08/28/19 16:34 Blood Pressure 162/90 H 08/28/19 16:34 Pulse Oximetry 97 08/28/19 16:34 Temperature 36.8 C 08/28/19 16:34 Temperature Source Tympanic 08/28/19 16:34 Pulse 82 08/28/19 16:34 Respiratory Rate 16 08/28/19 16:34 Blood Pressure 162/90 H 08/28/19 16:34 Blood Pressure Position Supine 08/28/19 16:34 Pulse Oximetry 97 08/28/19 16:34 Oxygen Delivery Method Room Air 08/28/19 16:34 Oxygen Flow Rate 0 08/28/19 16:34 Pain Level 0 08/28/19 16:34
[2019-08-28] MEDS: predniSONE 10 MG TAB 50 MG PO (18:13)
== END 2019-08-28 18:20 | disposition home or self-care (01) ==
PROVIDERS: Emergency Provider Physician Assistant; PCP Nurse Practitioner Adult Health
DX: R21 Rash and other nonspecific skin eruption (principal); R60.0 Localized edema; L29.9 Pruritus, unspecified; T50.995A Adverse effect of other drugs, medicaments and biological substances, initial encounter
CPT/HCPCS: 99283; J7512

== ENCOUNTER 2019-09-05 20:04 | Emergency (ER) | payer OTHER, MEDICAID, SELFPAY ==
--- NOTE | 2019-09-05 20:11 | ED.GENADUL_ITS ---
Discharge Plan Disposition Patient Disposition: HOME Condition: Good Discharge Details Chief Complaint: Orthopedic Clinical Impression: Knee pain, left Primary Care Provider: Leanne Macias ED Provider: Kirk Kilpatrick Home Meds and New Rx's Prescriptions: New lidocaine [Lidoderm] 1 PATCH patch 1 patch Topical Q24H Qty: 4 RF: 0 Continued cyclobenzaprine 10 mg Tablet 10 mg PO PRN PRNRF: 0 meloxicam 15 mg Tablet 15 mg PO BID RF: 0 chlorthalidone 25 mg Tablet 25 mg PO DAILY RF: 0 sildenafil 100 mg Tablet 100 mg PO PRN PRNRF: 0 tamsulosin 0.4 mg Capsule 0.4 mg PO DAILY RF: 0 trazodone 100 mg Tablet 200 mg PO PRN PRNRF: 0 benazepril 20 mg Tablet 20 mg PO DAILY RF: 0 folic acid 1 mg Tablet 1 mg PO DAILY RF: 0 epinephrine [EpiPen] 0.3 mg/0.3 mL Auto-Injector 0.3 mg IM PRN PRNRF: 0 fluticasone propionate 50 mcg/actuation [place],Suspension 2 spray INTRANASAL DAILY RF: 0 finasteride 5 mg Tablet 5 mg PO DAILY RF: 0 prazosin 2 mg Capsule 2 mg PO DAILY RF: 0 naproxen 500 mg Tablet 500 mg PO PRN PRNRF: 0 duloxetine 20 mg Capsule,Delayed Release(Dr/Ec) 20 mg PO DAILY RF: 0 diclofenac sodium 1 % Gel 1 % TOPICAL PRN PRNRF: 0 omeprazole 20 mg Tablet,Delayed Release (Dr/Ec) 20 mg PO DAILY RF: 0 famotidine 20 mg Tablet PO BID RF: 0 Discharge Instructions Instructions: Knee Pain (ED) Additional Instructions: At this time there is no evidence of fracture for your knee however as we discussed I suspect that you have notable arthritis in conjunction with mild meniscal injury and ligamentous injury. Please ice your knee 3-4 times per day. Avoid ibuprofen or naproxen, and instead take 500 to 1000 mg of Tylenol every 6 hours. Use your crutches to help give your knee a little rest over the next few weeks. We will place a referral with the marketing communications specialist here in [place]. If you notice any worsening of your symptoms, or any new symptoms such as vomiting, diarrhea, fever, chills, shortness of breath, chest pain, numbness, weakness, or fainting , please return immediately to the emergency department for reevaluation. Please follow up with your primary care provider as soon as possible for reassessment and reevaluation. As always, it was a pleasure participating in your medical care today. Referrals: Abdullahi Whiteside MD [ [facility] STAFF PHYSICIAN] - Deven Rodríguez MD [ [facility] STAFF PHYSICIAN] - Carlos Landeros MD [ [facility] STAFF PHYSICIAN] - Medical Decision Making This is a 58-year-old male with past medical history of rheumatoid arthritis, Sjogren's syndrome, gastric ulcer, chronic arthritis in his knees, who presents today for evaluation of left knee pain. The patient states that 3 to 4 weeks ago he was walking and twisted his left knee, he thought he heard a snap. Since then he has had pain in the knee whenever he ambulates. He has been using a hinged knee brace, this is slightly helped in conjunction with his cane. He had been taking meloxicam in the past but has not been recently secondary to what he feels was an allergic reaction. He has not been taking any NSAIDs secondary to history of a GI ulcer. Pain is worse with movement and ambulation, improved with rest and slightly improved with ice. He also noticed some mild swelling a round the left knee as well. The patient denies any numbness or tingling. He denies any fever or chills. He denies any redness, warmth, or other complaints. No other injuries. No other modifying factors. Patient's left knee demonstrates mild patella bursa inflammation and edema, no redness whatsoever. Mild tenderness around the patella itself. Patient is able to ambulate well. Knee is notably stable, distal neurovascular exam is all intact. No calf tenderness whatsoever. No symptoms or evidence of DVT. No significant pitting edema. Suspect that the patient has mild to moderate arthritis with mild meniscal injury as noted by the positive Sivakumar test in conjunction with his chronic arthritis. X-ray shows no evidence of acute fracture. Will give crutches Lidoderm patch recommend Tylenol and to avoid other NSAIDs. Recommend to continue ice on a regular daily basis, and will place referral for outpatient orthopedics for further evaluation. No evidence of DVT clinically, cellulitis, significant gout, or other concerning life-threatening etiology like septic arthritis. 9:20 PM X-ray reports have returned, no evidence of acute pathology or fracture. Suspect chronic arthritis with mild ligamentous component or meniscal component. Patient did very well with crutches. Recommend continued use with this, Tylenol, ice, and follow-up with orthopedics. Referral has been placed. Discussed red flags which to return. I have extensively reviewed the treatment plan and discharge instructions with the patient. I have addressed all patient concerns at this time. The patient was made aware of what symptoms to monitor for that would warrant a return to the emergency department. Discussed the plan with the patient, they demonstrate verbal understanding and agreement with our assessment and plan at this time. IMPRESSION: 1. No acute fracture or dislocation. 2. Mild tricompartmental degenerative changes as discussed. Thank you for allowing us to participate in the care of your patient. Dictated and Authenticated by: Juancarlos Woodall MD 09/05/2019 8:46 PM Eastern Time ([place] & [place]) HPI General Date/Time Provider Initiated Documentation: 09/05/19 20:10 . HPI Narrative: This is a 58-year-old male with past medical history of rheumatoid arthritis, Sj ogren's syndrome, gastric ulcer, chronic arthritis in his knees, who presents today for evaluation of left knee pain. The patient states that 3 to 4 weeks ago he was walking and twisted his left knee, he thought he heard a snap. Since then he has had pain in the knee whenever he ambulates. He has been using a hinged knee brace, this is slightly helped in conjunction with his cane. He had been taking meloxicam in the past but has not been recently secondary to what he feels was an allergic reaction. He has not been taking any NSAIDs secondary to history of a GI ulcer. Pain is worse with movement and ambulation, improved with rest and slightly improved with ice. He also noticed some mild swelling around the left knee as well. The patient denies any numbness or tingling. He denies any fever or chills. He denies any redness, warmth, or other complaints. No other injuries. No other modifying factors. Patient denies any chest pain, shortness of breath, chest tightness, cough, or hemoptysis. Denies PE risk factors such as recent long car rides, immobilization, recent surgery, prior history of DVT or PE, family history of PE or DVT, morbid obesity, exogenous estrogen and smoking, hemoptysis, history of cancer. Related Data Home Medications Medication Instructions Recorded Confirmed benazepril 20 mg PO DAILY 01/12/19 09/05/19 chlorthalidone 25 mg PO DAILY 01/12/19 09/05/19 cyclobenzaprine 10 mg PO PRN PRN 01/12/19 01/12/19 diclofenac sodium 1 % TOPICAL PRN PRN 01/12/19 01/12/19 duloxetine 20 mg PO DAILY 01/12/19 09/05/19 epinephrine [EpiPen] 0.3 mg IM PRN PRN 01/12/19 09/05/19 finasteride 5 mg PO DAILY 01/12/19 09/05/19 fluticasone propionate 2 spray INTRANASAL DAILY 01/12/19 09/05/19 folic acid 1 mg PO DAILY 01/12/19 01/12/19 meloxicam 15 mg PO BID 01/12/19 09/05/19 naproxen 500 mg PO PRN PRN 01/12/19 09/05/19 omeprazole 20 mg PO DAILY 01/12/19 01/12/19 prazosin 2 mg PO DAILY 01/12/19 09/05/19 sildenafil 100 mg PO PRN PRN 01/12/19 09/05/19 tamsulosin 0.4 mg PO DAILY 01/12/19 09/05/19 trazodone 200 mg PO PRN PRN 01/12/19 09/05/19 famotidine PO BID 09/05/19 lidocaine [Lidoderm] 1 patch TOPICAL Q24H #4 patch 09/05/19 Previous Rx's Medication Instructions Recorded lidocaine [Lidoderm] 1 patch TOPICAL Q24H #4 patch 09/05/19 Allergies Allergy/AdvReac Type Severity Reaction Status Date / Time bee venom protein (honey bee) Allergy Unverified 09/05/19 20:23 cefaclor [From Ceclor] Allergy Anaphylaxsi Unverified 09/05/19 20:23 s General SORAYA: 3 Review of Systems All systems reviewed & are unremarkable except as noted in HPI and below PFSH Medical History Hypertension (Chronic) Rheumatoid arteritis (Acute) Rheumatoid arthritis (Chronic) Sjogrens syndrome (Acute) Social History (Reviewed 09/05/19 @ 20:37 by JUDE Romero Smoking/Tobacco Use Status: Former Tobacco Use Alcohol Intake: current Alcohol Intake frequency: a few times a week Drug use: Never Substance use type: does not use Do you feel safe at home: Yes Do you feel safe in your relationship?: Yes Exam Narrative Exam Narrative: 1.Const: Well-nourished, Well-developed, appearing stated age 2.Eyes: PERRL, no conjunctival injection, and symmetrical lids. 3.ENT: Atraumatic external nose and ears. Moist MM. Neck: Symmetric, trachea midline, No thyromegaly. 4.CVS: +S1/S2, No murmurs or gallops. Peripheral pulses 2+ and equal in all extremities. Brisk capillary refill in all extremities. 5.RESP: Unlabored respiratory effort. Clear to auscultation bilaterally. No wheezes rales or rhonchi 6.GI: Soft, Nontender/Nondistended, No hepatosplenomegaly. No guarding or rebound. 7.MSK: Normocephalic/Atraumatic, Extremities w/o deformity. No cyanosis or clubbing, Normal movement of all extremities. Left knee: The knee is stable to varus, valgus, and anterior drawer stress. No deformity. Patellar grind test is positive for pain. Patient does have pain and tenderness though with valgus stressing. Sivakumar test is positive for pain. Patient is able to walk with mild pain with his cane. The patient does have m ild edema throughout his left knee, primarily around the patella bursa. No redness whatsoever.. No ttp to the fibular head. There is mild tenderness though to the peripatellar area, as well as just proximal to the tibial plateau. No redness whatsoever. 8.Skin: Warm, Dry. No rashes or lesions. 9.Neuro: calliope player II-XII grossly intact. Sensation grossly intact, no focal neurologic deficits. 10.Psych: (AAO) x3. Appropriate mood and affect
--- NOTE | 2019-09-05 20:15 | DI.RAD_ITS ---
EXAM: XR KNEE LT 4V AP,LAT,HAYDER,PAT CLINICAL HISTORY: 3 weeks pain after twisting knee, generalized. TECHNIQUE: 2D digital imaging was performed. COMPARISON: CR,XR XR CHEST 2V PA LATERAL from 01/12/2019 FINDINGS: BONES: No acute fracture is present. No bony destructive lesion is seen. Mild Tricompartment degener ative changes are seen. These include joint space narrowing and marginal osteophytes. JOINTS: The knee is normally aligned. Small suprapatellar joint effusion. SOFT TISSUE: Normal. IMPRESSION: No acute fracture or dislocation Degenerative changes in the knee. DATA REPOSITORY: RADIATION DOSE DELIVERED:
[2019-09-05 20:16] VITALS: BP 147/82; PULSE 93; RESP 18; TEMP 36.1; O2SAT 94
--- NOTE | 2019-09-05 20:46 | DI.VRAD_ITS ---
PROCEDURE INFORMATION: Exam: XR Left Knee Exam date and time: 09/05/2019 8:33 PM Age: 59 years old Clinical indication: Left; Patient HX: Knee pain for 3 weeks after twisting knee, generalized TECHNIQUE: Imaging protocol: XR Left knee. Views: 4 or more views. COMPARISON: No relevant prior studies available. FINDINGS: Bones/joints: No acute fracture or dislocation. There is mild tricompartmental marginal osteophyte formation with relative narrowing of the medial and patellofemoral compartments. There is small suprapatellar joint effusion. Soft tissues: No focal abnormality. IMPRESSION: 1. No acute fracture or dislocation. 2. Mild tricompartmental degenerative changes as discussed. Dictated and Authenticated by: Juancarlos Woodall MD. Ordering:SYLWIA Bradley MD
== END 2019-09-05 21:15 | disposition home or self-care (01) ==
PROVIDERS: Emergency Provider Student in an Organized Health Care Education/Training Program; PCP Nurse Practitioner Adult Health
DX: M25.562 Pain in left knee (principal); M06.9 Rheumatoid arthritis, unspecified; M13.162 Monoarthritis, not elsewhere classified, left knee; I10 Essential (primary) hypertension
CPT/HCPCS: 99283; 73564; E0114

== ENCOUNTER 2019-09-12 07:53 | Emergency (ER) | payer MEDICAID, SELFPAY ==
[2019-09-12 08:04] VITALS: BP 161/96; PULSE 94; RESP 18; TEMP 36.7; O2SAT 96
--- NOTE | 2019-09-12 08:21 | ED.GENADUL_ITS ---
Discharge Plan Disposition Patient Disposition: HOME Condition: Stable Discharge Details Chief Complaint: Cellulitis Clinical Impression: Left leg swelling, Arthritis of left knee, Injury of knee, left Primary Care Provider: Leanne Macias ED Provider: Patrick White Home Meds and New Rx's Prescriptions: Continued cyclobenzaprine 10 mg Tablet 10 mg PO PRN PRNRF: 0 chlorthalidone 25 mg Tablet 25 mg PO DAILY RF: 0 sildenafil 100 mg Tablet 100 mg PO PRN PRNRF: 0 tamsulosin 0.4 mg Capsule 0.4 mg PO DAILY RF: 0 trazodone 100 mg Tablet 200 mg PO PRN PRNRF: 0 benazepril 20 mg Tablet 20 mg PO DAILY RF: 0 folic acid 1 mg Tablet 1 mg PO DAILY RF: 0 epinephrine [EpiPen] 0.3 mg/0.3 mL Auto-Injector 0.3 mg IM PRN PRNRF: 0 fluticasone propionate 50 mcg/actuation [place],Suspension 2 spray INTRANASAL DAILY RF: 0 finasteride 5 mg Tablet 5 mg PO DAILY RF: 0 prazosin 2 mg Capsule 2 mg PO DAILY RF: 0 naproxen 500 mg Tablet 500 mg PO PRN PRNRF: 0 duloxetine 20 mg Capsule,Delayed Release(Dr/Ec) 20 mg PO DAILY RF: 0 diclofenac sodium 1 % Gel 1 % TOPICAL PRN PRNRF: 0 omeprazole 20 mg Tablet,Delayed Release (Dr/Ec) 20 mg PO DAILY RF: 0 famotidine 20 mg Tablet PO BID RF: 0 lidocaine [Lidoderm] 1 PATCH patch 1 patch Topical Q24H Qty: 4 RF: 0 Discharge Instructions Additional Instructions: Please follow-up with orthopedics and your primary care physician. Use knee brace, crutches and rest your knee with elevation over the next few weeks. Continue to take naproxen as prescribed. Return to the ER immediately for any worsening or new concerning symptoms. Referrals: Leanne Macias [Primary Care Provider] - Carlos Landeros MD [ [facility] STAFF PHYSICIAN] - Discharge Data Discharge Date/Time-TO BE ENTERED AT DEPARTURE: 09/12/19 09:28 Medical Decision Making Gait 26??59-year-old male with history of arthritis, question gouty arthritis, here with left knee pain, limited flexion and joint effusion without overlying inflammatory changes, as well as more distal left lower extremity edema. Patient did have recent hernia surgery and has been wearing knee brace with limited movement of his knee. Consider DVT. I did call to see if the technologist infectious disease was available to perform ultrasound. Consider gouty arthritis versus septic arthritis neuritis versus other. Plan to perform arthrocentesis of the left knee. --Attempted arthrocentesis and was unable to identify effusion for aspiration. We will give a dose of colchicine to see if this helps with pain. Patient is currently taking naproxen and using lidocaine patch over nape. We will perform ultrasound of the left lower extremity to assess for DVT. Ultrasound to be scheduled later today as radiation therapy technologist not immediately available. Patient would prefer to go home and come back for the study. I will hold on anticoagulant until test complete --163??patient return for ultrasound, ultrasound performed and negative for DVT per agricultural research technician. Plan for outpatient follow-up with orthopedics. Patient was encouraged to continue to use his knee brace and rest his leg with elevation. HPI General Mode of arrival: ambulatory . Date/Time Provider Initiated Documentation: 09/12/19 08:19 . Limitations to Documentation: no limitations . Information obtained by: patient . HPI Narrative: 59-year-old male with history of Sjogren's syndrome, arthritis, questionable gout, here with chief complaint of left leg swelling. Patient notes swelling started last night. Swelling was worse last night. He rested his leg and elevated it and swelling improved this morning but is still persisting. Swelling is localized to his left knee and left lower extremity to the ankle. Swelling is now moderate. He has associated pain in his left knee and also his left great toe. He notes that he has been told he may have gout but has not had joint aspiration performed. No associated fever. Patient was seen here in the emergency department on 09/05/2019 for left knee pain after injury a couple weeks prior, had x-rays, and was provided a knee brace and advised to follow-up with orthopedics with concern for meniscal versus ligamentous injury. He notes that he is attempting to schedule orthopedic follow-up. Related Data Home Medications Medication Instructions Recorded Confirmed benazepril 20 mg PO DAILY 01/12/19 09/12/19 chlorthalidone 25 mg PO DAILY 01/12/19 09/12/19 cyclobenzaprine 10 mg PO PRN PRN 01/12/19 09/12/19 diclofenac sodium 1 % TOPICAL PRN PRN 01/12/19 09/12/19 duloxetine 20 mg PO DAILY 01/12/19 09/12/19 epinephrine [EpiPen] 0.3 mg IM PRN PRN 01/12/19 09/12/19 finasteride 5 mg PO DAILY 01/12/19 09/12/19 fluticasone propionate 2 spray INTRANASAL DAILY 01/12/19 09/12/19 folic acid 1 mg PO DAILY 01/12/19 09/12/19 naproxen 500 mg PO PRN PRN 01/12/19 09/12/19 omeprazole 20 mg PO DAILY 01/12/19 09/12/19 prazosin 2 mg PO DAILY 01/12/19 09/12/19 sildenafil 100 mg PO PRN PRN 01/12/19 09/12/19 tamsulosin 0.4 mg PO DAILY 01/12/19 09/12/19 trazodone 200 mg PO PRN PRN 01/12/19 09/12/19 famotidine PO BID 09/05/19 lidocaine [Lidoderm] 1 patch TOPICAL Q24H #4 patch 09/05/19 09/12/19 Previous Rx's Medication Instructions Recorded lidocaine [Lidoderm] 1 patch TOPICAL Q24H #4 patch 09/05/19 Allergies Allergy/AdvReac Type Severity Reaction Status Date / Time bee venom protein (honey bee) Allergy Unverified 09/12/19 08:19 cefaclor [From Ceclor] Allergy Anaphylaxsi Unverified 09/12/19 08:19 s General Stated Complaint: Cellulitis SORAYA: 3 Review of Systems All systems reviewed & are unremarkable except as noted in HPI and below Constitutional Constitutional: Denies fever(s) Musculoskeletal Musculoskeletal: Reports as per HPI [facility] Medical History Hypertension (Chronic) Rheumatoid arteritis (Acute) Rheumatoid arthritis (Chronic) Sjogrens syndrome (Acute) Social History Smoking/Tobacco Use Status: Former Tobacco Use Alcohol Intake: current Alcohol Intake frequency: a few times a week Drug use: Never Substance use type: does not use Do you feel safe at home: Yes Do you feel safe in your relationship?: Yes Exam Const General: cooperative and no acute distress HENMT Mouth: moist mucous membranes Eyes Conjunctivae: normal conjunctivae Sclera: normal sclerae Neck Neck: trachea midline and supple Resp Auscultation: clear to auscultation bilaterally, no rales, no rhonchi and no wheezes Cardio Jugular venous pressure: no JVD Rate: regular rate and not tachycardic Rhythm: regular rhythm Pulses: dorsalis pedis present bilaterally 2+ GI Palpation: soft, not firm, no guarding, no masses, not rigid and nontender Skin General skin exam: no rashes or lesions noted Neuro General: patient alert, patient awake, patient oriented x3 and tone normal Extrem General: edema Laterality: left (Lower leg 1+) Left lower extremity: knee Details: tenderness, swelling and abnormal ROM (Limited flexion and pain with flexion) and lower leg Details: pitting edema Details: 1+; no erythema Psych Appearance: grossly normal Mental Status: mental status grossly normal Speech and Movement: speech and movement normal Course Vital Signs Vital signs: Vital Signs Temperature 36.7 C 09/12/19 08:04 Pulse 94 H 09/12/19 08:04 Respiratory Rate 18 09/12/19 08:04 Blood Pressure 161/96 H 09/12/19 08:04 Pulse Oximetry 96 09/12/19 08:04 Temperature 36.7 C 09/12/19 08:04 Temperature Source Temporal Artery Scan 09/12/19 08:04 Pulse 94 H 09/12/19 08:04 Respiratory Rate 18 09/12/19 08:04 Respiratory Effort Non-Labored 09/12/19 08:07 Blood Pressure 161/96 H 09/12/19 08:04 Blood Pressure Position Sitting 09/12/19 08:04 Pulse Oximetry 96 09/12/19 08:04 Oxygen Delivery Method Room Air 09/12/19 08:04 Oxygen Flow Rate 0 09/12/19 08:04 Procedures Joint Aspiration/Injection Joint Asp./Inject. 1: Time Out Performed: Yes Side of body: left Joint Aspirated: knee Skin Prep: Povidone-Iodine1% Local Anesthetic: Lidocaine 1% Amount of anesthesia used (mL): 4 Needle Size Used: 18G Fluid Obtained: clear Total fluid obtained (mL): 0 Complications: pain Additional Comments: tiny aspirate - too small for sample
[2019-09-12] MEDS: Colchicine 0.6 MG TAB PO (09:07)
[2019-09-12] MEDS: Lidocaine 1% Multi-Dose 50 ML VIAL IJ (09:09)
--- NOTE | 2019-09-12 15:15 | DI.US_ITS ---
EXAM: US LOWER EXTREMITY VENOUS LT CLINICAL HISTORY: leg swelling TECHNIQUE: Left lower extremity venous ultrasound performed using grayscale, color-flow, and spectra l Doppler analysis. COMPARISON: No exams were available for comparison FINDINGS: The left common femoral, femoral and popliteal veins demonstrate normal compressibility, augmentation , and color Doppler. The posterior tibial veins are patent. The saphenofemoral junction is unremarka ble. There is no evidence of a Tejeda cyst. Mild edema in the soft tissues around the left ankle. IMPRESSION: No DVT. DATA REPOSITORY:
--- NOTE | 2019-09-12 16:36 | DI.VRAD_ITS ---
PROCEDURE INFORMATION: Exam: US Duplex Left Lower Extremity Veins, Limited Exam date and time: 09/12/2019 3:20 PM Age: 59 years old Clinical indication: Pain; Leg, lower; Patient HX: Left ankle swelling. TECHNIQUE: Imaging protocol: Real-time Duplex ultrasound of the Left Lower Extremity with 2-D hoover scale, color Doppler flow and spectral waveform analysis with image documentation. Limited exam focused on the left lower extremity veins. COMPARISON: No relevant prior studies available. FINDINGS: Left deep veins: Unremarkable. The common femoral, femoral, proximal profunda femoral and popliteal veins are patent without thrombus. Normal Doppler waveforms. Normal compressibility and/or augmentation response. The posterior tibial vein appears patent. The anterior tibial vein and peroneal vein were not imaged. Thrombus in these vessels can therefore not be excluded. Left superficial veins: Unremarkable. Saphenofemoral junction is patent without thrombus. Soft tissues: There is soft tissue swelling in the left ankle region. IMPRESSION: 1. No DVT identified in the left lower extremity as described. 2. Soft tissue swelling in the left ankle region. This is a nonspecific finding that can be seen with edema, infection, or trauma. Dictated and Authenticated by: Daija Betancourt MD. Ordering:DERRICK Nguyen MD
== END 2019-09-12 09:28 | disposition home or self-care (01) ==
PROVIDERS: Emergency Provider Student in an Organized Health Care Education/Training Program; PCP Nurse Practitioner Adult Health
DX: M79.89 Other specified soft tissue disorders (principal); M17.12 Unilateral primary osteoarthritis, left knee; M06.9 Rheumatoid arthritis, unspecified; I10 Essential (primary) hypertension
CPT/HCPCS: 99284; 87070; 87205; 89051; 89060; 93971

== ENCOUNTER 2019-09-12 14:57 | Emergency (ER) | payer OTHER, MEDICAID, SELFPAY | END 2019-09-12 15:18 | LOC: ER 15:01 | PROVIDERS: PCP Nurse Practitioner Adult Health | DX: Z53.29 Procedure and treatment not carried out because of patient's decision for other reasons (principal) ==

== ENCOUNTER 2020-03-25 18:52 | Emergency (ER) | payer MEDICAID, SELFPAY ==
[2020-03-25] VITALS (17 sets, daily range): BP systolic 109–167; BP diastolic 49–87; PULSE 79–92; RESP 14–22; TEMP 36.8; O2SAT 94–97
--- NOTE | 2020-03-25 19:30 | RT.EKG_ITS ---
APPROVED REPORT Exam: Resting ECG Patient Location: E HR:83 bpm ECG Measurements Heart Rate 83 AXIS MT 215 P 40 QRSd 102 QRS 29 QT 398 T 32 QTc 468 Conclusion Sinus rhythm...normal P axis, V-rate 60- 99 Prolonged MT interval...MT >210, V-rate 50- 90
[2020-03-25] MEDS: Lactated Ringers 500 ML IV (20:13)
--- NOTE | 2020-03-25 20:17 | W.ED.GENAD ---
Discharge Plan Disposition Patient Disposition: HOME Condition: Stable Discharge Details Clinical Impression: Lightheadedness, Hyponatremia, Elevated serum creatinine, Prolonged MI interval Primary Care Provider: Leanne Macias ED Provider: Patrick White Home Meds and New Rx's Prescriptions: Continued cyclobenzaprine 10 mg Tablet 10 mg PO PRN PRNRF: 0 chlorthalidone 25 mg Tablet 25 mg PO DAILY RF: 0 tamsulosin 0.4 mg Capsule 0.4 mg PO DAILY RF: 0 trazodone 100 mg Tablet 200 mg PO PRN PRNRF: 0 benazepril 20 mg Tablet 20 mg PO DAILY RF: 0 folic acid 1 mg Tablet 1 mg PO DAILY RF: 0 epinephrine [EpiPen] 0.3 mg/0.3 mL Auto-Injector 0.3 mg IM PRN PRNRF: 0 fluticasone propionate 50 mcg/actuation [place],Suspension 2 spray INTRANASAL DAILY RF: 0 finasteride 5 mg Tablet 5 mg PO DAILY RF: 0 prazosin 2 mg Capsule 2 mg PO DAILY RF: 0 naproxen 500 mg Tablet 500 mg PO PRN PRNRF: 0 duloxetine 20 mg Capsule,Delayed Release(Dr/Ec) 20 mg PO DAILY RF: 0 diclofenac sodium 1 % Gel 1 % TOPICAL PRN PRNRF: 0 omeprazole 20 mg Tablet,Delayed Release (Dr/Ec) 20 mg PO DAILY RF: 0 Humira 10 mg/0.2 mL Syringe Kit 5 mg SUBCUT Q2W RF: 0 tadalafil 10 mg Tablet 10 mg PO DAILY PRNRF: 0 desvenlafaxine 100 mg Tablet Extended Release 24 Hr 100 mg PO DAILY RF: 0 lidocaine 4 % Cream 1 applic TOPICAL BID PRNRF: 0 pantoprazole 40 mg Tablet,Delayed Release (Dr/Ec) 40 mg PO BID RF: 0 mupirocin 2 % Ointment 1 applic TOPICAL BID RF: 0 albuterol 90 mcg/actuation Aerosol 90 mcg INHALATION Q4H PRN PRN (Reason: Shortness Of Breath) RF: 0 Nasal [place] Bottle Bottle 2 ea miscellaneous QID RF: 0 [id number] 0.5-1-0.5 % Drops 2 drp OPHTHALMIC (EYE) QHS PRN (Reason: Dry Eye(S)) RF: 0 Discharge Instructions Instructions: Dehydration (ED), Hyponatremia (ED) Additional Instructions: Please drink plenty of fluids to stay hydrated. Please contact your primary care physician to arrange follow-up. Be sure to discuss elevated creatinine level. You should have your blood work rechecked next week. Be sure to discuss your medications with your doctor. When you are ready to cut back on your alcohol intake, please reach out to [facility] who can provide resources and assist you. Return to the ER for any worsening or new concerning symptoms. Referrals: [facility] [Outside] Leanne Macias [Primary Care Provider] - Discharge Data Discharge Date/Time-TO BE ENTERED AT DEPARTURE: 03/25/20 21:15 Medical Decision Making 60-year-old male here generally not feeling well today with lightheadedness, feeling like his blood pressure was elevated, somewhat labile blood pressure according to patient prior to arrival. Initial vitals here within normal limits. Orthostatics were checked and patient did have a present 20 point drop in systolic blood pressure going from lying to sitting which then resolved with standing. He does appear slightly hypovolemic. I will give IV fluid bolus. Sinus rhythm 83 bpm, normal axis, prolonged MI interval at 215, QTc 468, otherwise nondiagnostic. Screening labs were reviewed to assess for electrolyte abnormalities. Patient does have a sodium of 127. Also his creatinine is 1.6 that has been this elevated in the past. His BUN is slightly elevated. Suspect prerenal secondary to hypovolemia. Patient was reassessed and notes he is feeling much better after 500 mL IV fluid bolus. Patient ambulated around the emergency department without any dysfunction. Vitals remain stable. Plan will be to have the patient follow-up with his primary care physician. Encouraged him to drink plenty of fluids and allow for plenty of rest. We discussed alcohol abuse. He understand that if symptoms were to return he may need additional diagnostic testing should return to the emergency department. HPI General Mode of arrival: ambulatory. Date/Time Provider Initiated Documentation: 03/25/20 18:53. Limitations to Documentation: no limitations. Information obtained by: patient. HPI Narrative: 60-year-old male with history of rheumatoid arthritis, hypertension, alcohol abuse, erectile dysfunction, presents with chief complaint of generally not feeling well. Patient notes that last night he consumed a heavy amount of alcohol, although less than his usual 18 beers. This morning he woke up feeling foggy and lightheaded. This has continued today and he is felt off and shaky. He states he felt like his blood pressure was either too high or too low. He checked his blood pressure up 30 minutes prior to arrival and noted that it was 148/80 and then checked it 2 more times and noted that it dropped subsequently to 101/53. This was concerning to him. He does note that he recently changed erectile dysfunction medications this week and is wondering if his symptoms are related to that. He does note that he feels a bit dehydrated. Patient denies associated chest pain. No shortness of breath. No leg swelling. No fever or chills. No cough. No headache. No numbness or weakness. He does have chronic joint pains that are unchanged. He also notes that he has intermittent vertigo that is been going on for at least a couple months. Symptoms are worse when he is first standing up and moving his head including bending over. He was seen at the OR last week and diagnosed with positional vertigo after testing and has plan for outpatient follow-up with physical therapy. Related Data Home Medications Medication Instructions Recorded Confirmed benazepril 20 mg PO DAILY 01/12/19 03/25/20 chlorthalidone 25 mg PO DAILY 01/12/19 03/25/20 cyclobenzaprine 10 mg PO PRN PRN 01/12/19 03/25/20 diclofenac sodium 1 % TOPICAL PRN PRN 01/12/19 03/25/20 duloxetine 20 mg PO DAILY 01/12/19 03/25/20 epinephrine [EpiPen] 0.3 mg IM PRN PRN 01/12/19 03/25/20 finasteride 5 mg PO DAILY 01/12/19 03/25/20 fluticasone propionate 2 spray INTRANASAL DAILY 01/12/19 03/25/20 folic acid 1 mg PO DAILY 01/12/19 03/25/20 naproxen 500 mg PO PRN PRN 01/12/19 03/25/20 omeprazole 20 mg PO DAILY 01/12/19 03/25/20 prazosin 2 mg PO DAILY 01/12/19 03/25/20 tamsulosin 0.4 mg PO DAILY 01/12/19 03/25/20 trazodone 200 mg PO PRN PRN 01/12/19 03/25/20 Humira 5 mg SUBCUT Q2W 03/25/20 03/25/[address] [place] Bottle 2 ea MISCELLANEOUS QID 03/25/20 03/25/20 albuterol 90 mcg INHALATION Q4H PRN PRN 03/25/20 03/25/20 [id number] 2 drp OPHTHALMIC (EYE) QHS PRN 03/25/20 03/25/20 desvenlafaxine 100 mg PO DAILY 03/25/20 03/25/20 lidocaine 1 applic TOPICAL BID PRN 03/25/20 03/25/20 mupirocin 1 applic TOPICAL BID 03/25/20 03/25/20 pantoprazole 40 mg PO BID 03/25/20 03/25/20 tadalafil 10 mg PO DAILY PRN 03/25/20 03/25/20 Allergies Allergy/AdvReac Type Severity Reaction Status Date / Time bee venom protein (honey bee) Allergy Unverified 03/25/20 19:04 calcium [From Embrex 600] Allergy Skin Rash Unverified 03/25/20 19:04 cefaclor [From Ceclor] Allergy Anaphylaxsi Unverified 03/25/20 19:04 s docusate [From Embrex 600] Allergy Skin Rash Unverified 03/25/20 19:04 folic acid [From Embrex 600] Allergy Skin Rash Unverified 03/25/20 19:04 iron [From Embrex 600] Allergy Skin Rash Unverified 03/25/20 19:04 vitamins with Allergy Skin Rash Unverified 03/25/20 19:04 calcium [From Embrex 600] General Stated Complaint: Dizzy/Sync SORAYA: 3 Review of Systems All systems reviewed & are unremarkable except as noted in HPI and below Constitutional Constitutional: Denies fever(s) Cardiovascular Cardiovascular: Denies chest pain, Denies rapid heart rate and Denies dyspnea Respiratory Respiratory: Denies cough and Denies dyspnea Gastrointestinal Gastrointestinal: Denies abdominal pain [facility] Medical History Alcohol abuse Erectile dysfunction Hypertension PTSD (post-traumatic stress disorder) Rheumatoid arteritis Rheumatoid arthritis Sjogrens syndrome Social History Smoking/Tobacco Use Status: Former Tobacco Use Smoking risk assessment performed?: Yes Alcohol Intake: current Alcohol Intake frequency: a few times a week Alcohol type: beer Drug use: Never Substance use type: does not use Do you feel safe at home: Yes Do you feel safe in your relationship?: Yes Exam Const General: cooperative and no acute distress HENME Head: normocephalic and atraumatic Mouth: moist mucous membranes Eyes Alignment and Position: alignment normal Conjunctivae: normal conjunctivae Sclera: normal sclerae Pupils: PERRL EOM: EOM intact bilaterally Neck Neck: trachea midline and supple Resp Auscultation: clear to auscultation bilaterally, no rales, no rhonchi and no wheezes Cardio Jugular venous pressure: no JVD Rate: regular rate and not tachycardic Rhythm: regular rhythm GI Palpation: soft, not firm, no guarding, no masses, not rigid and nontender Skin General skin exam: no rashes or lesions noted Neuro General: patient alert, patient awake, patient oriented x3, tone normal and CN's II-XI intact bilaterally Cranial Nerves: CN's II-XI intact bilaterally Cognition: normal cognition Speech: speech normal Motor: strength 5/5 throughout Sensory Exam: no sensory deficits noted Coordination: txnffy-hj-voyj test normal, deuh-sd-jlsh test normal, Romberg test normal and rapid alternating movement LE normal Extrem General: no calf tenderness and no edema Psych Appearance: grossly normal Mental Status: mental status grossly normal Speech and Movement: speech and movement normal Course Vital Signs Vital signs: Vital Signs Temperature 36.8 C 03/25/20 18:59 Pulse 92 H 03/25/20 18:59 Respiratory Rate 18 03/25/20 18:59 Blood Pressure 143/82 H 03/25/20 18:59 Pulse Oximetry 96 03/25/20 18:59 Temperature 36.8 C 03/25/20 18:59 Temperature Source Skin 03/25/20 18:59 Pulse 85 03/25/20 19:41 Respiratory Rate 18 03/25/20 19:09 Respiratory Effort Non-Labored 03/25/20 19:09 Respiratory Pattern Normal 03/25/20 19:09 Blood Pressure 167/81 H 03/25/20 19:41 Pulse Oximetry 96 03/25/20 18:59 Pain Level 0 03/25/20 18:59
[2020-03-25 20:20] LABS: Abs Immature Grans 0.02 10^3/uL (0.0-0.06); Absolute Basophil Count 0.05 10^3/uL (0.0-0.2); Absolute Eosinophil Count 0.28 10^3/uL (0.0-0.7); Absolute Lymphocyte Count 2.23 10^3/uL (1.2-3.4); Absolute Monocyte Count 0.67 10^3/uL (0.1-0.8); Absolute Neutrophil Count 4.48 10^3/uL (1.2-6.7); Basophils % 0.6; Eosinophils % 3.6; HCT 41.1 % (40.0-50.0); HGB 14.5 g/dL (13.5-17.5); Immature Grans % 0.3; Lymphocytes % 28.8; MCH 30.7 pg (27.0-33.0); MCHC 35.3 % (32.0-36.0); MCV 86.9 fL (80-95); MPV 9.2 fL (8.0-11.0); Monocytes % 8.7; Nucleated RBC 0 %; Platelet Count 182 10^3/uL (130-400); RBC 4.73 10^6/uL (4.36-5.78); RDW 12.5 % (11.8-14.1); RDW-SD 39.9 fL; WBC 7.73 10^3/uL (4.4-10.8)
[2020-03-25 20:41] LABS: ALT 52 U/L (16-63); AST 38 U/L (15-37); Albumin 3.8 g/dL (3.4-5.0); Alkaline Phosphatase 56 U/L (46-116); Anion Gap 6.6 mmol/L (3-11); BUN 21 mg/dL (7-18); Bilirubin, Total 0.8 mg/dL (0.2-1.0); CO2 28.4 mmol/L (21.0-32.0); CREATININE 1.6 mg/dL (0.70-1.30); Calcium 8.6 mg/dL (8.5-10.1); Chloride 92 mmol/L (98-107); Estimated GFR 44.62 (mL/min/1.73m2); Glucose 98 mg/dL (74-106); Magnesium 1.8 mg/dL (1.8-2.4); Potassium 3.6 mmol/L (3.5-5.1); Sodium 127 mmol/L (136-145); Total Protein 7.2 g/dL (6.4-8.2)
[2020-03-25 20:49] LABS: Troponin I < 0.05 ng/mL (<0.06)
== END 2020-03-25 21:15 | disposition home or self-care (01) ==
PROVIDERS: Emergency Provider Student in an Organized Health Care Education/Training Program; PCP Nurse Practitioner Adult Health
DX: E87.1 Hypo-osmolality and hyponatremia (principal); R42 Dizziness and giddiness; R94.4 Abnormal results of kidney function studies; R94.31 Abnormal electrocardiogram [ECG] [EKG]; I95.1 Orthostatic hypotension; F10.10 Alcohol abuse, uncomplicated
CPT/HCPCS: 36415; 80053; 93005; 96360; 99284; 83735; 84484; 85025; 93010; 99285

== ENCOUNTER 2020-04-22 23:47 | Emergency (ER) | payer MEDICAID, SELFPAY ==
--- NOTE | 2020-04-22 23:53 | DI.CT_ITS ---
EXAM: CT HEAD CERV SPINE FACIAL WO CLINICAL HISTORY: fell, drunk, hit nose. TECHNIQUE: Imaging Protocol: Axial computed tomography images with coronal and sagittal reformatted images were created and reviewed COMPARISON: CT CT NECK W from 01/08/2019 FINDINGS: The examination is limited due to patient motion artifact. CT Head: Ventricles and Extra axial spaces: Normal in size and morphology for the patient's age. Hemorrhage: None. Cerebral parenchyma: Normal. Midline shift: None. Brainstem/Cerebellum: Normal. Calvarium: Normal. Visualized Paranasal sinuses/Mastoids: There is mild mucosal thickening seen in the visualized parana melinda sinuses but no air-fluid levels are seen. The mastoid air cells are clear. Soft Tissues: Unremarkable. CT Face: Facial Bones: There is a mildly depressed nasal bone fracture. There is also a minimally displaced nasal septal fracture. Sinuses and Mastoids: Mild mucosal thickening is seen in the visualized paranasal sinuses. No fluid levels are seen. Mastoids are well pneumatized. Globes, extraocular muscles, optic nerves and retrobulbar fat: Normal. Upper aerodigestive tract: Normal. Mandible and bilateral temporomandibular joints: Normal. Soft tissues: Mild soft tissue swelling overlying the nose. CT Cervical Spine: Bones: No acute fracture or subluxation. Multilevel degenerative changes are seen in the cervical spi ne. Soft Tissues: Unremarkable. Lung Apices: Clear. IMPRESSION: 1. No acute intracranial process. 2. No acute fracture or subluxation in the cervical spine. 3. Nasal septum and nasal bone fracture. RADIATION DOSE DELIVERED: 2,833.47mGy.cm Total DLP DATA REPOSITORY: All CT scans at this facility are submitted to the National Radiology Data Registry (NRDR) Dose Index Registry (DIR) with the [employer] ([employer]). RADIATION OPTIMIZATION: All CT scans at this facility use at least one of these dose optimization te chniques: automated exposure control; mA and/or kV adjustment per patient size (includes targeted exa ms where dose is matched to clinical indication); or iterative reconstruction.
[2020-04-22 23:54] VITALS: BP 166/93; PULSE 95; RESP 16; TEMP 36.4; O2SAT 99
--- NOTE | 2020-04-22 23:56 | ED.GENADUL_ITS ---
Discharge Plan Disposition Patient Disposition: HOME Condition: Good Discharge Details Clinical Impression: Alcohol intoxication, Fracture of nasal bone, Fall Primary Care Provider: Leanne Macias ED Provider: Kirk Kilpatrick Home Meds and New Rx's Prescriptions: Continued cyclobenzaprine 10 mg Tablet 10 mg PO PRN PRNRF: 0 chlorthalidone 25 mg Tablet 25 mg PO DAILY RF: 0 tamsulosin 0.4 mg Capsule 0.4 mg PO DAILY RF: 0 trazodone 100 mg Tablet 200 mg PO PRN PRNRF: 0 benazepril 20 mg Tablet 20 mg PO DAILY RF: 0 folic acid 1 mg Tablet 1 mg PO DAILY RF: 0 epinephrine [EpiPen] 0.3 mg/0.3 mL Auto-Injector 0.3 mg IM PRN PRNRF: 0 fluticasone propionate 50 mcg/actuation [place],Suspension 2 spray INTRANASAL DAILY RF: 0 finasteride 5 mg Tablet 5 mg PO DAILY RF: 0 prazosin 2 mg Capsule 2 mg PO DAILY RF: 0 naproxen 500 mg Tablet 500 mg PO PRN PRNRF: 0 duloxetine 20 mg Capsule,Delayed Release(Dr/Ec) 20 mg PO DAILY RF: 0 diclofenac sodium 1 % Gel 1 % TOPICAL PRN PRNRF: 0 omeprazole 20 mg Tablet,Delayed Release (Dr/Ec) 20 mg PO DAILY RF: 0 Humira 10 mg/0.2 mL Syringe Kit 5 mg SUBCUT Q2W RF: 0 tadalafil 10 mg Tablet 10 mg PO DAILY PRNRF: 0 desvenlafaxine 100 mg Tablet Extended Release 24 Hr 100 mg PO DAILY RF: 0 lidocaine 4 % Cream 1 applic TOPICAL BID PRNRF: 0 pantoprazole 40 mg Tablet,Delayed Release (Dr/Ec) 40 mg PO BID RF: 0 mupirocin 2 % Ointment 1 applic TOPICAL BID RF: 0 albuterol 90 mcg/actuation Aerosol 90 mcg INHALATION Q4H PRN PRN (Reason: Shortness Of Breath) RF: 0 Nasal [place] Bottle Bottle 2 ea miscellaneous QID RF: 0 [id number] 0.5-1-0.5 % Drops 2 drp OPHTHALMIC (EYE) QHS PRN (Reason: Dry Eye(S)) RF: 0 Discharge Instructions Instructions: Nasal Fracture (ED) Additional Instructions: At this time your CT scan shows evidence of a fracture for your nose, but no other significant fractures currently. Please take Tylenol or Motrin for any pain or swelling, please use some ice or cooling washcloths on your nose to help with the swelling.If you notice any worsening of your symptoms, or any new symptoms such as a large grapelike object in your nose, vomiting, diarrhea, fever, chills, shortness of breath, chest pain, numbness, weakness, or fainting , please return immediately to the emergency department for reevaluation. Please follow up with your primary care provider as soon as possible for reassessment and reevaluation. As always, it was a pleasure participating in your medical care today. Referrals: Leanne Macias [Primary Care Provider] - Medical Decision Making This is a 60-year-old male with past medical history of rheumatoid arthritis, Sjogren's syndrome, gastric ulcer, chronic arthritis in his knees, presents today for evaluation of fall, and nose trauma, and intoxication. Patient was brought in by his roommates, who stated that this evening he had been drinking, and he came downstairs and had a notable amount of blood on his face and shirt. They suspect that he fell, patient does not recall the events. He was brought into the ER for further evaluation. Currently the patient is notably pleasant, aside for mild complaint of mild nose pain he has no other complaints. He denies any pain in his head neck chest abdomen or pelvis. He does have pain in his nose. He denies any IV or illicit drug use. No other complaints at this time. He is not on any blood thinners. Physical exam demonstrates notable trauma to the nose, suspected fracture. No evidence of nasal septal hematoma. Small superficial linear excoriation over the brow. No other abnormalities on exam, no midline cervical thoracic or lumbar spine tenderness. No other evidence of trauma at all. We will get a CT scan of the head neck and face, update his tetanus, monitor closely and reassess. 12:[address] scan shows evidence of a small nasal septal fracture, no other significant abnormality, C-spine and head is otherwise unremarkable. Patient shows no evidence of a nasal septal hematoma on exam. Patient's friend feels comfortable taking him home. Patient is otherwise clinically stable but does appear mildly intoxicated. No signs of toxic alcohol syndrome though. Patient will be discharged, tetanus updated. I have extensively reviewed the treatment plan and discharge instructions with the patient. I have addressed all patient concerns at this time. The patient was made aware of what symptoms to monitor for that would warrant a return to the emergency department. Discussed the plan with the patient, they demonstrate verbal understanding and agreement with our assessment and plan at this time. The documentation in this chart was dictated using [employer] dictation software. Please excuse any dictation errors. FINDINGS: Vertebrae: Cervical degenerative disc disease and facet joint arthropathy noted. No evidence for fracture, dislocation or subluxation. Soft tissues: Unremarkable. IMPRESSION: No acute findings Thank you for allowing us to participate in the care of your patient. Dictated and Authenticated by: Alex Morris MD 04/23/2020 12:31 AM Eastern Time ([place] & [place]) FINDINGS: Orbital cavity: Orbits are normal. Globes are unremarkable. Bones/joints: Bony nasal septal fracture noted Paranasal sinuses: Normal. No air-fluid levels. Soft tissues: Unremarkable. IMPRESSION: Bony nasal septal fracture FINDINGS: Brain: Normal. No hemorrhage. Unremarkable white matter. No mass effect. Cerebral ventricles: No ventriculomegaly. Bones/joints: Unremarkable. No acute fracture. Paranasal sinuses: Visualized sinuses are unremarkable. No fluid levels. Mastoid air cells: Visualized mastoid air cells are well aerated. Soft tissues: Unremarkable. IMPRESSION: No acute intracranial abnormality. HPI General Date/Time Provider Initiated Documentation: 04/22/20 23:53 . HPI Narrative: This is a 60-year-old male with past medical history of rheumatoid arthritis, Sjogren's syndrome, gastric ulcer, chronic arthritis in his knees, presents today for evaluation of fall, and nose trauma, and intoxication. Patient was brought in by his roommates, who stated that this evening he had been drinking, and he came downstairs and had a notable amount of blood on his face and shirt. They suspect that he fell, patient does not recall the events. He was brought into the ER for further evaluation. Currently the patient is notably pleasant, aside for mild complaint of mild nose pain he has no other complaints. He denies any pain in his head neck chest abdomen or pelvis. He does have pain in his nose. He denies any IV or illicit drug use. No other complaints at this time. He is not on any blood thinners. Related Data Home Medications Medication Instructions Recorded Confirmed benazepril 20 mg PO DAILY 01/12/19 04/23/20 chlorthalidone 25 mg PO DAILY 01/12/19 04/23/20 cyclobenzaprine 10 mg PO PRN PRN 01/12/19 04/23/20 diclofenac sodium 1 % TOPICAL PRN PRN 01/12/19 04/23/20 duloxetine 20 mg PO DAILY 01/12/19 04/23/20 epinephrine [EpiPen] 0.3 mg IM PRN PRN 01/12/19 04/23/20 finasteride 5 mg PO DAILY 01/12/19 04/23/20 fluticasone propionate 2 spray INTRANASAL DAILY 01/12/19 04/23/20 folic acid 1 mg PO DAILY 01/12/19 04/23/20 naproxen 500 mg PO PRN PRN 01/12/19 04/23/20 omeprazole 20 mg PO DAILY 01/12/19 04/23/20 prazosin 2 mg PO DAILY 01/12/19 04/23/20 tamsulosin 0.4 mg PO DAILY 01/12/19 04/23/20 trazodone 200 mg PO PRN PRN 01/12/19 04/23/20 Humira 5 mg SUBCUT Q2W 03/25/20 04/23/20 Nasal [place] Bottle 2 ea MISCELLANEOUS QID 03/25/20 04/23/20 albuterol 90 mcg INHALATION Q4H PRN PRN 03/25/20 04/23/20 [id number] 2 drp OPHTHALMIC (EYE) QHS PRN 03/25/20 04/23/20 desvenlafaxine 100 mg PO DAILY 03/25/20 04/23/20 lidocaine 1 applic TOPICAL BID PRN 03/25/20 04/23/20 mupirocin 1 applic TOPICAL BID 03/25/20 04/23/20 pantoprazole 40 mg PO BID 03/25/20 04/23/20 tadalafil 10 mg PO DAILY PRN 03/25/20 04/23/20 Allergies Allergy/AdvReac Type Severity Reaction Status Date / Time bee venom protein (honey bee) Allergy Unverified 03/25/20 19:04 calcium [From Embrex 600] Allergy Skin Rash Unverified 03/25/20 19:04 cefaclor [From Ceclor] Allergy Anaphylaxsi Unverified 03/25/20 19:04 s docusate [From Embrex 600] Allergy Skin Rash Unverified 03/25/20 19:04 folic acid [From Embrex 600] Allergy Skin Rash Unverified 03/25/20 19:04 iron [From Embrex 600] Allergy Skin Rash Unverified 03/25/20 19:04 vitamins with Allergy Skin Rash Unverified 03/25/20 19:04 calcium [From Embrex 600] General Stated Complaint: Laceration SORAYA: 4 Review of Systems All systems reviewed & are unremarkable except as noted in HPI and below PFSH Medical History Alcohol abuse Erectile dysfunction Hypertension PTSD (post-traumatic stress disorder) Rheumatoid arteritis Rheumatoid arthritis Sjogrens syndrome Social History Smoking/Tobacco Use Status: Former Tobacco Use Smoking risk assessment performed?: Yes Alcohol Intake: current Alcohol Intake frequency: a few times a week Alcohol type: beer Drug use: Never Substance use type: does not use Do you feel safe at home: Yes Do you feel safe in your relationship?: Yes Exam Narrative Exam Narrative: 1.Const: Well-nourished, Well-developed, appearing stated age 2.Eyes: PERRL, no conjunctival injection, and symmetrical lids. 3.ENT: There is no evidence of raccoon eyes, guidry sign, CSF rhinorrhea, mastoid tenderness, cranial crepitus, hemotympanum, exophthalmos, or hyphema. Patient demonstrates intact dentition with no signs of tooth avulsion or fracture, no signs of jaw deformity, no evidence of a LeFort's fracture, with an intact palate, and orbital region. There is no evidence of a nasal septal hematoma. Notable trauma to the bridge of the nose, certain suspected clinical fracture. Small 3 cm linear superficial excoriation over the nasal bridge. Appears somewhat superficial. No proptosis. Jaw closes symmetrically. Airway is clear. 4.CVS: Regular rate and rhythm, Normal s1 and s2. No murmurs, carotid bruits, rubs, or gallops. Radial pulses 2+ bilaterally and symmetric. Dorsalis pedis pulses 2+ bilaterally and symmetric. 2+ capillary refill. No evidence of distant heart sounds. No extremity edema. No evidence of gross hemorrhage. 5.RESP: airway clear, no obstructions. No abrasions or ecchymosis. Chest movement symmetric with respirations. No chest wall tenderness. Trachea midline. No crepitus. No step offs. No paradoxical movements. Lungs are clear to auscultation bilaterally. No rales, rhonchi, wheezing or stridor. Breath sound symmetric. No Sucking chest wounds. No clinical evidence of significant chest trauma. 6.GI: Soft, Nontender/Nondistended, No hepatosplenomegaly. No guarding or rebound. 7.MSK: Normocephalic/Atraumatic, Extremities w/o deformity or ttp No cyanosis or clubbing, Normal movement of all extremities 8.Skin: Warm, Dry. No rashes or lesions. 9.Neuro: soa architect II-XII grossly intact. Sensation grossly intact, no focal neurologic deficits. Moves all extremities well without deficit. 10.Psych: (AAO) x3. Mildly intoxicated Course Vital Signs Vital signs: Vital Signs Temperature 36.4 C L 04/22/20 23:54 Pulse 95 H 04/22/20 23:54 Respiratory Rate 16 04/22/20 23:54 Blood Pressure 166/93 H 04/22/20 23:54 Pulse Oximetry 99 04/22/20 23:54 Temperature 36.4 C L 04/22/20 23:54 Temperature Source Skin 04/22/20 23:54 Pulse 95 H 04/22/20 23:54 Respiratory Rate 16 04/22/20 23:54 Blood Pressure 166/93 H 04/22/20 23:54 Blood Pressure Position Sitting 04/22/20 23:54 Pulse Oximetry 99 04/22/20 23:54 Oxygen Delivery Method Room Air 04/22/20 23:54 Oxygen Flow Rate 0 04/22/20 23:54 Pain Level 0 04/22/20 23:54 Procedures Laceration Laceration 1: Size (cm): 3
[2020-04-22] MEDS: Lidocaine/Epinephri/Tetracaine Topical Gel 3 ML TP (23:57)
--- NOTE | 2020-04-22 23:59 | NUR.NOTE ---
Pt brought in by roommates, states he came downstairs after drinking alcohol with blood on face and clothing. Suspeced fall. Pt does not recall fall. Denies any ohter injuries. Dried blood to tommie nares. Lac between eyes. Denies neck/back pain.
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
--- NOTE | 2020-04-23 00:34 | NUR.NOTE ---
Facial wounds found to be superficial after cleaning. No sutures needed.
== END 2020-04-23 00:45 | disposition home or self-care (01) ==
LOC: ER 04-23 00:34
PROVIDERS: Emergency Provider Student in an Organized Health Care Education/Training Program; PCP Nurse Practitioner Adult Health
DX: S02.2XXA Fracture of nasal bones, initial encounter for closed fracture (principal); X58.XXXA Exposure to other specified factors, initial encounter; F10.120 Alcohol abuse with intoxication, uncomplicated
CPT/HCPCS: 90471; 99285; 70450; 70486; 72125; 99284

== ENCOUNTER 2020-06-04 16:32 | Emergency (ER) | payer OTHER, MEDICAID, SELFPAY ==
[2020-06-04] VITALS (42 sets, daily range): BP systolic 131–174; BP diastolic 64–113; PULSE 81–107; RESP 4–28; TEMP 36.6; O2SAT 92–99
--- NOTE | 2020-06-04 16:30 | RT.EKG_ITS ---
APPROVED REPORT Exam: Resting ECG Patient Location: E HR:93 bpm ECG Measurements Heart Rate 93 AXIS GA 204 P 62 QRSd 96 QRS 28 QT 374 T 47 QTc 468 Conclusion Sinus rhythm...normal P axis, V-rate 60- 99 Borderline prolonged GA interval...GA >197, V-rate 91-120
[2020-06-04 17:03] LABS: Abs Immature Grans 0.01 10^3/uL (0.0-0.06); Absolute Basophil Count 0.05 10^3/uL (0.0-0.2); Absolute Eosinophil Count 0.25 10^3/uL (0.0-0.7); Absolute Lymphocyte Count 2.19 10^3/uL (1.2-3.4); Absolute Monocyte Count 0.63 10^3/uL (0.1-0.8); Absolute Neutrophil Count 3.83 10^3/uL (1.2-6.7); Basophils % 0.7; Eosinophils % 3.6; HGB 15.3 g/dL (13.5-17.5); Immature Grans % 0.1; Lymphocytes % 31.5; MCH 30.8 pg (27.0-33.0); MCHC 34.8 % (32.0-36.0); MCV 88.7 fL (80-95); MPV 8.6 fL (8.0-11.0); Monocytes % 9.1; Nucleated RBC 0 %; Platelet Count 193 10^3/uL (130-400); RBC 4.96 10^6/uL (4.36-5.78); RDW 12.2 % (11.8-14.1); RDW-SD 39.9 fL; WBC 6.96 10^3/uL (4.4-10.8)
--- NOTE | 2020-06-04 17:07 | ED.GENADUL_ITS ---
Discharge Plan Disposition Patient Disposition: HOME Condition: Improving Discharge Details Clinical Impression: Asthma exacerbation, Bronchitis Primary Care Provider: Leanne Macias ED Provider: Cee Méndez Home Meds and New Rx's Prescriptions: New prednisone 20 mg tablet 40 mg PO DAILY 5 Days Qty: 10 RF: 0 Continued cyclobenzaprine 10 mg Tablet 10 mg PO PRN PRNRF: 0 chlorthalidone 25 mg Tablet 25 mg PO DAILY RF: 0 tamsulosin 0.4 mg Capsule 0.4 mg PO DAILY RF: 0 trazodone 100 mg Tablet 200 mg PO PRN PRNRF: 0 benazepril 20 mg Tablet 20 mg PO DAILY RF: 0 folic acid 1 mg Tablet 1 mg PO DAILY RF: 0 epinephrine [EpiPen] 0.3 mg/0.3 mL Auto-Injector 0.3 mg IM PRN PRNRF: 0 fluticasone propionate 50 mcg/actuation [place],Suspension 2 spray INTRANASAL DAILY RF: 0 finasteride 5 mg Tablet 5 mg PO DAILY RF: 0 prazosin 2 mg Capsule 2 mg PO DAILY RF: 0 naproxen 500 mg Tablet 500 mg PO PRN PRNRF: 0 duloxetine 20 mg Capsule,Delayed Release(Dr/Ec) 20 mg PO DAILY RF: 0 diclofenac sodium 1 % Gel 1 % TOPICAL PRN PRNRF: 0 omeprazole 20 mg Tablet,Delayed Release (Dr/Ec) 20 mg PO DAILY RF: 0 Humira 10 mg/0.2 mL Syringe Kit 5 mg SUBCUT Q2W RF: 0 tadalafil 10 mg Tablet 10 mg PO DAILY PRNRF: 0 desvenlafaxine 100 mg Tablet Extended Release 24 Hr 100 mg PO DAILY RF: 0 lidocaine 4 % Cream 1 applic TOPICAL BID PRNRF: 0 pantoprazole 40 mg Tablet,Delayed Release (Dr/Ec) 40 mg PO BID RF: 0 mupirocin 2 % Ointment 1 applic TOPICAL BID RF: 0 albuterol 90 mcg/actuation Aerosol 90 mcg INHALATION Q4H PRN PRN (Reason: Shortness Of Breath) RF: 0 Nasal [place] Bottle Bottle 2 ea miscellaneous QID RF: 0 [id number] 0.5-1-0.5 % Drops 2 drp OPHTHALMIC (EYE) QHS PRN (Reason: Dry Eye(S)) RF: 0 Discharge Instructions Instructions: Asthma (ED), Acute Bronchitis (ED) Additional Instructions: Follow up with primary care provider in 3-5 days. Return to ED sooner if any worsening or concerns. Increase oral fluids. Please take Tylenol or Ibuprofen with food every 4-6 hours as needed for pain and swelling. Discussed with your PCP possible nebulizer treatment and albuterol/ipratropium or DuoNeb. Return to the ED or be seen sooner for any worsening chest pain, shortness of breath or any concerns. Your Covid swab today was negative. Referrals: Leanne Macias [Primary Care Provider] - Medical Decision Making 60-year-old male presents the ER with chief complaint of sore throat, hoarse voice, productive cough with clear sputum, wheezes began approximately 2 to 3 days ago. He states now is losing his voice. Reports chest pressure from coughing a few days ago none currently. He does have a history of asthma and does use a rescue albuterol inhaler which he used twice today. He denies any fever but he did have some chills last night. Denies any nausea vomiting diarrhea or trouble urinating. He has a past medical history of Sjogren's syndrome, rheumatoid arthritis, PTSD, hypertension he is a former smoker. At this time work-up ordered including CBC, CMP, serial troponins, rapid strep swab, Covid swab, chest x-ray albuterol ipratropium neb, dexamethasone. EKG was reviewed by Yohan Zeng MD ER attending, please see his official report. Old EKG was available for review. On initial exam patient does have some erythema to his posterior oropharynx, no exudate, expiratory wheezes at the lung bases worse on the left, and diminished lung sounds on the right. No stridor. Normal S1-S2 no rubs murmurs or gallops auscultated. Abdomen is nontender to palpation all 4 quadrants. CBC is within normal limits no leukocytosis, sodium potassium within normal limits, glucose 147, AST 49 ALT 71 alk phos 63 both troponins within normal limits less than 0.05, EKG is unchanged, Covid negative. Rapid strep swab neg ative. Patient has received albuterol ipratropium neb, dexamethasone which has improved his symptoms. Will place patient on 5-day stent of 40 mg prednisone and instructions to follow-up with PCP regarding nebulizer treatment at home. At this time instructed to continue using the albuterol as needed. Discussed return instructions and verbalized understanding. Patient was hemodynamically stable and ambulatory prior to discharge. HPI General Mode of arrival: ambulatory . Date/Time Provider Initiated Documentation: 06/04/20 16:47 . Limitations to Documentation: no limitations . Information obtained by: patient . HPI Narrative: 60-year-old male presents the ER with chief complaint of sore throat, hoarse voice, productive cough with clear sputum, wheezes began approximately 2 to 3 days ago. He states now is losing his voice. Reports chest pressure from coughing a few days ago none currently. He does have a history of asthma and does use a rescue albuterol inh aler which he used twice today. He denies any fever but he did have some chills last night. Denies any nausea vomiting diarrhea or trouble urinating. He has a past medical history of Sjogren's syndrome, rheumatoid arthritis, PTSD, hypertension he is a former smoker. Related Data Home Medications Medication Instructions Recorded Confirmed benazepril 20 mg PO DAILY 01/12/19 04/23/20 chlorthalidone 25 mg PO DAILY 01/12/19 04/23/20 cyclobenzaprine 10 mg PO PRN PRN 01/12/19 04/23/20 diclofenac sodium 1 % TOPICAL PRN PRN 01/12/19 04/23/20 duloxetine 20 mg PO DAILY 01/12/19 04/23/20 epinephrine [EpiPen] 0.3 mg IM PRN PRN 01/12/19 04/23/20 finasteride 5 mg PO DAILY 01/12/19 04/23/20 fluticasone propionate 2 spray INTRANASAL DAILY 01/12/19 04/23/20 folic acid 1 mg PO DAILY 01/12/19 04/23/20 naproxen 500 mg PO PRN PRN 01/12/19 04/23/20 omeprazole 20 mg PO DAILY 01/12/19 04/23/20 prazosin 2 mg PO DAILY 01/12/19 04/23/20 tamsulosin 0.4 mg PO DAILY 01/12/19 04/23/20 trazodone 200 mg PO PRN PRN 01/12/19 04/23/20 Humira 5 mg SUBCUT Q2W 03/25/20 04/23/20 Nasal [place] Bottle 2 ea MISCELLANEOUS QID 03/25/20 04/23/20 albuterol 90 mcg INHALATION Q4H PRN PRN 03/25/20 04/23/20 [id number] 2 drp OPHTHALMIC (EYE) QHS PRN 03/25/20 04/23/20 desvenlafaxine 100 mg PO DAILY 03/25/20 04/23/20 lidocaine 1 applic TOPICAL BID PRN 03/25/20 04/23/20 mupirocin 1 applic TOPICAL BID 03/25/20 04/23/20 pantoprazole 40 mg PO BID 03/25/20 04/23/20 tadalafil 10 mg PO DAILY PRN 03/25/20 04/23/20 prednisone 40 mg PO DAILY 5 Days #10 tab 06/04/20 Previous Rx's Medication Instructions Recorded prednisone 40 mg PO DAILY 5 Days #10 tab 06/04/20 Allergies Allergy/AdvReac Type Severity Reaction Status Date / Time bee venom protein (honey bee) Allergy Unverified 06/04/20 16:39 calcium [From Embrex 600] Allergy Skin Rash Unverified 06/04/20 16:39 cefaclor [From Ceclor] Allergy Anaphylaxsi Unverified 06/04/20 16:39 s docusate [From Embrex 600] Allergy Skin Rash Unverified 06/04/20 16:39 folic acid [From Embrex 600] Allergy Skin Rash Unverified 06/04/20 16:39 iron [From Embrex 600] Allergy Skin Rash Unverified 06/04/20 16:39 vitamins with Allergy Skin Rash Unverified 06/04/20 16:39 calcium [From Embrex 600] General Stated Complaint: RespSymp SORAYA: 3 Review of Systems Narrative: Constitutional: Negative for weight loss, alert and oriented, well groomed, normal body habitus, appears comfortable. HEENT: Denies trauma, headaches, blurry vision, nasal discharge, trouble swallowing. Positive sore throat and hoarse voice. Chest: Denies , palpitations, irregular rhythm, positive chest pressure few days ago none currently. Respiratory: Denies hemoptysis. Positive cough, shortness of breath. GI: Denies abdominal pain, nausea, vomiting, diarrhea, constipation. : Denies dysuria, hematuria, flank pain, rectal bleeding. Neuro: Denies dizziness, blurry vision, weakness, syncope, headache or facial numbness. Hematologic: Denies easy bruising, intolerance to heat or cold, hair loss. [facility] Medical History Alcohol abuse Erectile dysfunction Hypertension PTSD (post-traumatic stress disorder) Rheumatoid arteritis Rheumatoid arthritis Sjogrens syndrome Social History Smoking/Tobacco Use Status: Former Tobacco Use Smoking risk assessment performed?: Yes Alcohol Intake: current Alcohol Intake frequency: a few times a week Alcohol type: beer Drug use: Never Substance use type: does not use Do you feel safe at home: Yes Do you feel safe in your relationship?: Yes Exam Narrative Exam Narrative: Constitutional: Alert and oriented x3. Appears stated age. Normal body habitus. Head: Normocephalic, no trauma. Eyes: Pupils PERRLA, Red reflex noted, EOM's intact. Eyelids symmetrical without lesions, discharge, or swelling. ENT: Bilateral TM's WNL, External ear normal to inspection, no mastoid TTP, swelling, or erythema, Nasal turbinates WNL, no nasal discharge. Normal dentition, Posterior pharynx erythemic and cobblestone appearance, tonsils are absent bilaterally, no exudate. Chest: RRR, Normal S1, S2, distal pulses intact. Resp: Lungs with scattered expiratory wheezes throughout all lung quiroz, no rales, or rhonchi. Abdomen: Nontender to palpation all 4 quadrants Musculoskeletal: Normal gait, 5/5 strength to all four extremities. No bilateral lower extremity edema. Skin: No suspicious rashes or lesions. Capillary refill less than 2 sec. Neurologic: Cranial nerves II-XII intact. Alert and oriented x 3. DTR's intact. Hematologic/Lymphatic: No ecchymosis, no lymphadenopathy. Course Vital Signs Vital signs: Vital Signs Temperature 36.6 C 06/04/20 16:38 Pulse 102 H 06/04/20 16:38 Respiratory Rate 20 06/04/20 16:38 Blood Pressure 174/85 H 06/04/20 16:38 Pulse Oximetry 96 06/04/20 16:38 Temperature 36.6 C 06/04/20 16:38 Temperature Source Skin 06/04/20 16:38 Pulse 102 H 06/04/20 16:38 Respiratory Rate 20 06/04/20 16:38 Respiratory Effort 06/04/20 17:01 Respiratory Depth Normal 06/04/20 17:01 Blood Pressure 174/85 H 06/04/20 16:38 Blood Pressure Position Sitting 06/04/20 16:38 Pulse Oximetry 96 06/04/20 16:38 Oxygen Delivery Method Room Air 06/04/20 16:38 Oxygen Flow Rate 0 06/04/20 16:38 Pain Level 0 06/04/20 16:38 Lab/Test Results Lab/Test Results: Laboratory Tests Range/Units 06/04/20 16:50 WBC (4.4-10.8) 10^3/uL 6.96 RBC (4.36-5.78) 10^6/uL 4.96 Hgb (13.5-17.5) g/dL 15.3 Hct (40.0-50.0) % 44.0 MCV (80-95) fL 88.7 MCH (27.0-33.0) pg 30.8 MCHC (32.0-36.0) % 34.8 RDW (11.8-14.1) % 12.2 Plt Count (130-400) 10^3/uL 193 MPV (8.0-11.0) fL 8.6 Immature Gran % 0.1 Neutrophils % 55.0 Lymphocytes % 31.5 Monocytes % 9.1 Eosinophils % 3.6 Basophils % 0.7 Nucleated RBC % % 0 Absolute Neutrophils (1.2-6.7) 10^3/uL 3.83 Absolute Lymphocytes (1.2-3.4) 10^3/uL 2.19 Absolute Monocytes (0.1-0.8) 10^3/uL 0.63 Absolute Eosinophils (0.0-0.7) 10^3/uL 0.25 Absolute Basophils (0.0-0.2) 10^3/uL 0.05
[2020-06-04 17:17] LABS: ALT 71 U/L (16-63); AST 49 U/L (15-37); Albumin 3.7 g/dL (3.4-5.0); Alkaline Phosphatase 63 U/L (46-116); BUN 14 mg/dL (7-18); Bilirubin, Total 0.6 mg/dL (0.2-1.0); CREATININE 1.3 mg/dL (0.70-1.30); Calcium 8.8 mg/dL (8.5-10.1); Chloride 96 mmol/L (98-107); Glucose 147 mg/dL (74-106); Potassium 3.6 mmol/L (3.5-5.1); Sodium 136 mmol/L (136-145); Total Protein 7.6 g/dL (6.4-8.2)
[2020-06-04 17:22] LABS: Magnesium 1.8 mg/dL (1.8-2.4)
[2020-06-04 17:26] LABS: Source Nasal/Nares
--- NOTE | 2020-06-04 17:30 | DI.RAD_ITS ---
EXAM: XR PORTABLE CHEST AP CLINICAL HISTORY: PUI, Cough. TECHNIQUE: 2D digital imaging was performed. COMPARISON: Prior chest x-ray 01/12/2019 FINDINGS: Heart size is upper normal. The mediastinum is not widened. Lungs are clear. No infiltrates nor obvious pleural effusions. Chest leads in place IMPRESSION: No acute pulmonary findings on this single AP portable view of the chest. DATA REPOSITORY: RADIATION DOSE DELIVERED: All CT scans at this facility use at least one of these dose optimization techniques: automated exposure control; mA and/or kV adjustment per patient size (includes targeted e xams where dose is matched to clinical indication); or iterative reconstruction.
[2020-06-04 17:31] LABS: Troponin I < 0.05 ng/mL (<0.06)
[2020-06-04] MEDS: Dexamethasone 10 MG/ML VIAL PO (17:32)
[2020-06-04] MEDS: Albuterol/Ipratropium 3 ML UPD VIAL UPD (17:33)
--- NOTE | 2020-06-04 17:50 | DI.VRAD_ITS ---
PROCEDURE INFORMATION: Exam: XR Chest Exam date and time: 06/04/2020 17:07 Age: 60 years old Clinical indication: Cough; Patient HX: Pui TECHNIQUE: Imaging protocol: XR of the chest. Views: 1 view. COMPARISON: CR XR CHEST 2V PA LATERAL 01/12/2019 20:00 FINDINGS: Lungs: Low lung volumes. No airspace consolidation. Pleural spaces: No pleural effusion. No pneumothorax. Heart/Mediastinum: No significant cardiomegaly for position and projection. Bones/joints: No acute fracture. IMPRESSION: Negative portable chest. Dictated and Authenticated by: Lelo Barlow MD. Ordering:HAYLEE iMke MD
[2020-06-04 18:27] LABS: COVID-19 PCR Negative (Negative)
--- NOTE | 2020-06-04 19:45 | RT.EKG_ITS ---
APPROVED REPORT Exam: Resting ECG Patient Location: E HR:79 bpm ECG Measurements Heart Rate 79 AXIS MT 214 P 35 QRSd 100 QRS 20 QT 387 T 32 QTc 443 Conclusion Sinus rhythm...normal P axis, V-rate 60- 99 Prolonged MT interval...MT >210, V-rate 50- 90 Normal [place] Otherwise normal ECG There are no significant changes compared to prior EKG performed on 06/04/2020 at 16:44.
[2020-06-04 20:22] LABS: Troponin I < 0.05 ng/mL (<0.06)
== END 2020-06-04 20:55 | disposition home or self-care (01) ==
PROVIDERS: Emergency Provider Registered Nurse Emergency; PCP Nurse Practitioner Adult Health
DX: J45.901 Unspecified asthma with (acute) exacerbation (principal); Z20.822 Contact with and (suspected) exposure to COVID-19; J20.9 Acute bronchitis, unspecified
CPT/HCPCS: 80053; 87635; 87880; 93005; 94640; 99284; 71045; 83735; 84484; 85025; 87081; 93010; 99283; J1100; J7620